=== PATIENT | female | born 1940 | race Hispanic/Latino ===

== ENCOUNTER → 2017-05-18 | Outpatient (CLI) | payer OTHER ==
[~2017-05-18] MED LIST: ASPI-1181 PO; BETA2500 PO; BUME2TAB18 PO; CHOL100040 PO; DOCU-116 PO; DOXY100C2 PO; FERS325 PO; FISH1CAP49 PO; GLIM2TAB3 PO; HYDR100T27 PO; ISOS30TA6 PO; METO50TA18 PO; NITR0.4T50 SL; SIMV20TA6 PO
== END | disposition home or self-care (01) ==
LOC: SHCH 14:56
PROVIDERS: ATTEND Internal Medicine Cardiovascular Disease
DX: R09.89 Other specified symptoms and signs involving the circulatory and respiratory systems (principal)
CPT/HCPCS: 93880

== ENCOUNTER → 2018-06-05 | Outpatient (CLI) | payer OTHER | END | disposition home or self-care (01) | LOC: SHCH 14:20 | PROVIDERS: ATTEND Internal Medicine Cardiovascular Disease | DX: I65.23 Occlusion and stenosis of bilateral carotid arteries (principal) | CPT/HCPCS: 93880 ==

== ENCOUNTER → 2018-12-20 | Outpatient (CLI) | payer OTHER ==
[~2018-12-20] MED LIST changes: -BUME2TAB18 PO; +BUME2TAB5 PO
== END | disposition home or self-care (01) ==
LOC: OIH 13:49
PROVIDERS: ATTEND Internal Medicine
DX: M19.071 Primary osteoarthritis, right ankle and foot (principal); M19.072 Primary osteoarthritis, left ankle and foot; M20.12 Hallux valgus (acquired), left foot; M20.11 Hallux valgus (acquired), right foot; M06.4 Inflammatory polyarthropathy
CPT/HCPCS: 73620

== ENCOUNTER 2019-02-14 12:56 | Inpatient (IN) | payer OTHER ==
[~2019-02-14] VITALS: Ht 154.9 cm; Wt 81.4 kg
[~2019-02-14 12:56] MED LIST changes: -GLIM2TAB3 PO; +GLIM2TAB4 PO; +SIMV-43 PO; -SIMV20TA6 PO
[2019-02-14 15:05] LABS: INR 0.97 (0.85-1.15); PARTIAL THROMBOPLASTIN TIME 30.8 SEC (26.3-35.5); PROTHROMBIN TIME 10.2 SEC (9.6-11.6)
[2019-02-14 15:11] LABS: APPEARANCE,URINE Clear (CLEAR); BILIRUBIN,URINE Negative (NEGATIVE); COLOR,URINE Yellow (YELLOW); GLUCOSE, URINE (UA) Negative (NEGATIVE); KETONES,URINE Negative (NEGATIVE); LEUKOCYTE ESTERASE ,URINE Negative (NEGATIVE); NITRATE,URINE Negative (NEGATIVE); OCCULT BLOOD,URINE Negative (NEGATIVE); PROTEIN,URINE POS 2+ mg/dL (NEGATIVE); UROBILINOGEN,URINE 0.2 mg/dL (0.2-1.0)
[2019-02-14 15:24] LABS: HEMATOCRIT 32.3 % (36-48); MEAN CORPUSCULAR HEMOGLOBIN 28.2 pg (27.0-33.0); MEAN CORPUSCULAR VOLUME 85.6 fL (79-99); PLATELET COUNT (AUTO) 346 K/uL (130-400); RED BLOOD CELL COUNT(AUTO) 3.78 MIL/uL (4.00-5.50); RED CELL DISTRIBUTION WIDTH 16.6 % (11.0-15.5); WHITE BLOOD COUNT (AUTO) 18.3 K/uL (4.8-10.8)
[2019-02-14 15:29] LABS: BACTERIA,URINE Rare /HPF (None Seen); RBC,URINE None Seen /HPF (0-1); SQUAMOUS EPITHELIAL CELL,UR 0-2 /HPF (0-2); WBC,URINE 0-1 /HPF (0-1)
[2019-02-14] MEDS ORDERED: DEXTROSE 50%-WATER 50 ML DISP.SYRIN IV ONE ×3 (15:31→23:40)
[2019-02-14 15:35] LABS: ALANINE AMINOTRANSFERASE 19 U/L (12-78); ALBUMIN 2.5 g/dL (3.5-5.0); ASPARTATE AMINOTRANSFERASE 29 U/L (10-37); BILIRUBIN,TOTAL 0.3 mg/dL (0.2-1.0); CARBON DIOXIDE 29 mmol/L (21-32); CHLORIDE 99 mmol/L (101-111); CREATINE KINASE, TOTAL 84 U/L (21-232); CREATININE 6.6 mg/dL (0.5-1.5); GLOMERULAR FILTR. RATE CALC 6 mL/min (>60); MYOGLOBIN 182 ng/mL (10-92); POTASSIUM 3.5 mmol/L (3.5-5.1); SODIUM SERUM 141 mmol/L (136-145); TOTAL PROTEIN, SERUM 7.4 g/dL (6.0-8.3); TROPONIN I < 0.04 ng/mL (0.00-0.06)
[2019-02-14 15:41] LABS: GLUCOSE,RANDOM 22 mg/dL (70-105); UREA NITROGEN, BLOOD 127 mg/dL (7-18)
[2019-02-14 16:04] LABS: LYMPHOCYTES % (MANUAL) 5 % (22-44); MAN.DIFF COMMENT-IMPRESSION MANUAL DIFFERENTIAL; MONOCYTES % (MANUAL) 3 % (2-9); SEGMENTED NEUTROPHILS % 92 % (40-70)
[2019-02-14 16:05] LABS: PLATELET MORPHOLOGY COMMENT ADEQUATE
[2019-02-14] MEDS ORDERED: PHARMACY COMMUNICATION MISC SCH (20:30)
[2019-02-14] MEDS ORDERED: ONDANSETRON HCL 4 MG/2 ML VIAL IVP PRN (20:30)
[2019-02-14] MEDS ORDERED: ACETAMINOPHEN 325 MG TAB PO PRN (20:30)
[2019-02-14] MEDS ORDERED: LEVOFLOXACIN 500 MG/D5W 100 ML 100 ML ONE (21:22)
[2019-02-14 23:20] VITALS: BP 168/73
[2019-02-15] VITALS (10 sets, daily range): BP systolic 135–169; BP diastolic 46–88
[2019-02-15] MEDS ORDERED: GLUCAGON 1MG KIT 1 MG ML IM PRN (00:30)
[2019-02-15] MEDS: DEXTROSE 50%-WATER 50 ML DISP.SYRIN IV PRN ×6 (02:50→16:15)
--- NOTE | 2019-02-15 04:03 | NUR ---
HYPOGLYCEMIA Patient resting in bed, AA&O X3. No shortness of breath or distress. Patient currently on 2 liters of O2 via NC. No pain or chest pain at this time. Patient came to floor with diagnose of hypoglycemia and chest pain. Blood sugars for patient have been fluctuating; blood sugars have been checked every hour, following hypoglycemia protocol. Last blood sugar is currently 19; administered 25 ml of D50. Patient's vital signs are stable and WNL. Patient is responsive. [employer]EM[employer] gerontology aide. Fabio Dyer NP returned page. Informed him of patient's diagnose and history of CHF and stage 5 CKD. Reported patient's blood sugars are fluctuating and reported current blood sugar of 19. Aware of patient following hypoglycemia protocol and patient has received apple juice and peanut butter with crackers. Obtained order for D10 @40 cc/hr. Will follow order and continue to monitor patient and blood sugars.
[2019-02-15] MEDS: SODIUM CHLORIDE 23.4% 30ML VL 154 MEQ in DEXTROSE 10%-WATER 961.5 ML IV SCH ×2 (04:15→20:17)
[2019-02-15] MEDS ORDERED: DEXTROSE 10%-WATER 1,000 ML IV ONE (04:17)
[2019-02-15] MEDS ORDERED: HYDR100T27 PO (04:55)
[2019-02-15] MEDS ORDERED: FEBU40TA PO (04:55)
[2019-02-15] MEDS ORDERED: VIT1CAPS26 PO (04:55)
[2019-02-15] MEDS ORDERED: ACET1TAB12 PO (04:55)
[2019-02-15] MEDS ORDERED: METO5TAB7 PO (04:55)
[2019-02-15] MEDS ORDERED: GLIM4TAB5 PO (04:55)
[2019-02-15] MEDS ORDERED: NIFE60TA81 PO (04:55)
[2019-02-15] MEDS ORDERED: GARL1000 PO (04:55)
[2019-02-15] MEDS ORDERED: COLC0.6T70 PO (04:55)
[2019-02-15] MEDS ORDERED: ISOS30TA6 PO (04:55)
[2019-02-15] MEDS ORDERED: SIMV-43 PO (04:55)
[2019-02-15] MEDS ORDERED: ALLO100T PO (04:55)
[2019-02-15] MEDS ORDERED: METO50TA18 PO (04:55)
[2019-02-15] MEDS ORDERED: BUME2TAB5 PO (04:55)
[2019-02-15] MEDS ORDERED: ASPI-555 PO (04:55)
[2019-02-15] MEDS ORDERED: AMLO5TAB9 PO (04:55)
[2019-02-15 05:18] LABS: MEAN CORPUSCULAR HEMOGLOBIN 27.6 pg (27.0-33.0); MEAN CORPUSCULAR HGB CONC 31.5 g/dL (32.0-36.0); MEAN CORPUSCULAR VOLUME 87.4 fL (79-99); NUCLEATED RED BLOOD CELLS 0.1 % (0.0-0.19); PLATELET COUNT (AUTO) 328 K/uL (130-400); RED BLOOD CELL COUNT(AUTO) 3.43 MIL/uL (4.00-5.50); RED CELL DISTRIBUTION WIDTH 16.6 % (11.0-15.5); WHITE BLOOD COUNT (AUTO) 15.5 K/uL (4.8-10.8)
[2019-02-15 05:47] LABS: CARBON DIOXIDE 27 mmol/L (21-32); CHLORIDE 102 mmol/L (101-111); CREATINE KINASE, TOTAL 57 U/L (21-232); CREATININE 6.3 mg/dL (0.5-1.5); GLOMERULAR FILTR. RATE CALC 7 mL/min (>60); GLUCOSE,RANDOM 53 mg/dL (70-105); MYOGLOBIN 169 ng/mL (10-92); PHOSPHORUS 6.4 mg/dL (2.5-4.9); POTASSIUM 3.4 mmol/L (3.5-5.1); SODIUM SERUM 144 mmol/L (136-145); TROPONIN I < 0.04 ng/mL (0.00-0.06)
[2019-02-15 06:03] LABS: UREA NITROGEN, BLOOD 121 mg/dL (7-18)
--- NOTE | 2019-02-15 07:50 | NUR ---
DR. ROMAN IN TO SEE PT. WANTS IV CHANGED TO RT. ARM, WANTS LEFT ARM PRESERVED FOR PROBABLE NEAR FUTURE HEMO-DIALYSIS.
--- NOTE | 2019-02-15 08:15 | NUR ---
BLOOD SUGAR CHECKED, IS AT 30. PT. DIAPHORETIC BUT AWAKE AND ALERT, 25ML OF D50 GIVEN. WILL CONTINUE TO MONITOR CLOSELY.
--- NOTE | 2019-02-15 08:36 | NUR ---
Current glucose reading 30. Pt alert, but diaphoretic. Pt ate entire breakfast, and is currently on D10 @ 40ml/hr. Primary nurse administered 25ml of D50. Will continue monitoring glucose Q1h. Paged JEOVANNY Spence for [employer] for further orders.
--- NOTE | 2019-02-15 09:30 | NUR ---
INITIAL MET W PATIENT ALONE, ALERT ORIENTED X3 LIVES WITH SPOUSE SILVIA, WHO IS IN GOOD HEALTH; HOME IS SAFE & ACCESSIBLE, SPOUSE DRIVES PT TO APPT'S. PT USES CANE & ROLLING WALKER ON OCCASION, HAS SHOWER CHAIR/ SAFE BATHROOM. HAS BEEN DIABETIC TYPE TWO SINCE 1979, TAKES GLYBURIDE 2MG AND HAS NEVER HAD ANY PROBLEMS WITH HYPOGLYCEMIA BEFORE. ADVISED HER THAT WE MAY DO A PT EVAL AFTER HER SUGARS HAVE BEEN STABLE FOR A WHILE- TO ENSURE HER SPELL OF ILLNESS HAS NOT AFFECTED HER MOBILITY CM TO FOLLOW. DCP IS HOME AT THIS TIME P Addendum: 02/15/19 at 1439 by EDDIE TOLEDO RN CM Amended: Links added.
--- NOTE | 2019-02-15 11:00 | NUR ---
0.5 MG GLUCAGON GIVEN IM NOW FOR BLD SUGAR 41
[2019-02-15 11:55] LABS: PROTEIN,URINE RANDOM 84.2 mg/dL (0-11.9)
[2019-02-15] MEDS: ZOSYN 3.375GM+NS 50ML 50 ML IV SCH (13:19)
[2019-02-15] MEDS ORDERED: METHYLPREDNISOLONE SOD SUCC 40MG/ML 1ML ONE (14:31)
--- NOTE | 2019-02-15 15:51 | NUR ---
1539 Had pt sign IM Letter. Faxed IM Letter to [phone] and placed in chart under consent tab.
[2019-02-15] MEDS: HYDRALAZINE HCL 20 MG/ML VIAL IV PRN (16:48)
[2019-02-15] MEDS ORDERED: PHARMACY COMMUNICATION MISC SCH ×2 (19:30)
[2019-02-16] VITALS (23 sets, daily range): BP systolic 125–200; BP diastolic 15–114
[2019-02-16] MEDS: ZOSYN 3.375GM+NS 50ML 50 ML IV SCH ×2 (00:11→13:14)
--- NOTE | 2019-02-16 00:42 | NUR ---
Sandra PAK NP NOTIFIED PATIENT'S BLOOD GLUCOSE OVER 200 X 4 HRS AND D10NS OFF X 3 HOURS- NEW ORDERS TO HOLD IV D10 NS AND START INSULIN SQ SS.
[2019-02-16] MEDS ORDERED: INSULIN HUMULIN R 100 UNIT/ML 3ML ONE (03:24)
[2019-02-16 04:01] LABS: HEMATOCRIT 31.7 % (36-48); MEAN CORPUSCULAR HEMOGLOBIN 27.7 pg (27.0-33.0); MEAN CORPUSCULAR HGB CONC 32.2 g/dL (32.0-36.0); MEAN CORPUSCULAR VOLUME 86.2 fL (79-99); NUCLEATED RED BLOOD CELLS 0.1 % (0.0-0.19); PLATELET COUNT (AUTO) 363 K/uL (130-400); RED BLOOD CELL COUNT(AUTO) 3.68 MIL/uL (4.00-5.50); RED CELL DISTRIBUTION WIDTH 16.4 % (11.0-15.5); WHITE BLOOD COUNT (AUTO) 12.7 K/uL (4.8-10.8)
[2019-02-16 04:03] LABS: PHOSPHORUS 6.6 mg/dL (2.5-4.9); POTASSIUM 4.1 mmol/L (3.5-5.1)
[2019-02-16 04:06] LABS: % IRON SATURATION 13.2 % (22-44)
[2019-02-16 04:20] LABS: LYMPHOCYTES % (MANUAL) 6 % (22-44); MONOCYTES % (MANUAL) 2 % (2-9); SEGMENTED NEUTROPHILS % 92 % (40-70)
[2019-02-16 04:21] LABS: MAN.DIFF COMMENT-IMPRESSION MANUAL DIFFERENTIAL
[2019-02-16] MEDS ORDERED: INSULIN HUMULIN R 100 UNIT/ML 3ML SQ SCH ×2 (07:30)
[2019-02-16] MEDS ORDERED: COMPOUND IV MISC 1 EACH IVSOLN MISC PRN (12:45)
[2019-02-16] MEDS: IRON SUCROSE COMPLEX 100 MG in SODIUM CHLORIDE 0.9% 50 ML IV SCH (13:11)
[2019-02-16] MEDS: INSULIN HUMULIN R 100 UNIT/ML 3ML SQ SCH ×3 (13:12→21:00)
[2019-02-16] MEDS: LEVOFLOXACIN 250 MG/D5W 50ML 50 ML IVPB SCH (13:14)
[2019-02-16] MEDS ORDERED: INSULIN REGULAR, HUMAN 3ML 100 UNIT in SODIUM CHLORIDE 0.9% 99 ML IV PRN ×4 (17:45→19:15)
[2019-02-16] MEDS ORDERED: PHARMACY COMMUNICATION MISC SCH ×2 (18:00→20:45)
[2019-02-16] MEDS: AMLODIPINE BESYLATE 5 MG TAB PO SCH (18:07)
[2019-02-16] MEDS: HYDRALAZINE HCL 20 MG/ML VIAL IV PRN (18:07)
[2019-02-16] MEDS ORDERED: HYDR100T27 PO ×2 (20:39)
[2019-02-16] MEDS: METOPROLOL TARTRATE 50 MG TAB PO SCH (21:12)
[2019-02-16] MEDS: HYDRALAZINE HCL 25 MG TABLET PO SCH (21:13)
[2019-02-17] VITALS (18 sets, daily range): BP systolic 135–194; BP diastolic 42–83
[2019-02-17] MEDS: ZOSYN 3.375GM+NS 50ML 50 ML IV SCH ×2 (00:14→12:35)
[2019-02-17] MEDS: HYDRALAZINE HCL 20 MG/ML VIAL IV PRN (05:11)
[2019-02-17] MEDS: INSULIN HUMULIN R 100 UNIT/ML 3ML SQ SCH ×5 (06:35→21:14)
[2019-02-17] MEDS: METOPROLOL TARTRATE 50 MG TAB PO SCH ×2 (08:32→21:06)
[2019-02-17] MEDS: AMLODIPINE BESYLATE 5 MG TAB PO SCH (08:32)
[2019-02-17] MEDS: HYDRALAZINE HCL 25 MG TABLET PO SCH ×2 (08:33→21:06)
[2019-02-17] MEDS ORDERED: HYDRALAZINE HCL 200 MG PO SCH (09:00)
[2019-02-17] MEDS: IRON SUCROSE COMPLEX 100 MG in SODIUM CHLORIDE 0.9% 50 ML IV SCH (10:20)
[2019-02-17 11:36] LABS: CREATININE 5.8 mg/dL (0.5-1.5); POTASSIUM 3.6 mmol/L (3.5-5.1)
[2019-02-17] MEDS: INSULIN GLARGINE 100 UNITS/ML 10 ML VIAL SQ SCH (21:14)
[2019-02-18] MEDS: ZOSYN 3.375GM+NS 50ML 50 ML IV SCH ×2 (00:11→12:55)
[2019-02-18 00:37] VITALS: BP 185/78
[2019-02-18 01:20] VITALS: BP 121/45
--- NOTE | 2019-02-18 01:21 | NUR ---
ACTIVITY Pt assisted to the bathroom,using a roller walker,elizabeth well.
[2019-02-18 04:35] VITALS: BP 162/55
[2019-02-18] MEDS: INSULIN HUMULIN R 100 UNIT/ML 3ML SQ SCH ×4 (06:01→21:55)
[2019-02-18 06:05] LABS: CREATININE 5.7 mg/dL (0.5-1.5); MAGNESIUM 1.9 mg/dL (1.80-2.40); PHOSPHORUS 7.1 mg/dL (2.5-4.9); POTASSIUM 3.7 mmol/L (3.5-5.1)
--- NOTE | 2019-02-18 06:20 | NUR ---
H AND H Lab called that hg 6.2,hct 19,big drop from yesterday.No active bleeding noted.Lab said will redraw.
[2019-02-18 06:27] LABS: HEMATOCRIT 31.5 % (36-48); MEAN CORPUSCULAR HGB CONC 31.8 g/dL (32.0-36.0); MEAN CORPUSCULAR VOLUME 87.8 fL (79-99); PLATELET COUNT (AUTO) 335 K/uL (130-400); RED BLOOD CELL COUNT(AUTO) 3.59 MIL/uL (4.00-5.50); RED CELL DISTRIBUTION WIDTH 16.4 % (11.0-15.5); WHITE BLOOD COUNT (AUTO) 12.9 K/uL (4.8-10.8)
--- NOTE | 2019-02-18 06:30 | NUR ---
MD Dr RAMOS made aware of consult via phone,states he will come see pt today.
[2019-02-18 06:31] LABS: INR 1.02 (0.85-1.15); PARTIAL THROMBOPLASTIN TIME 27.2 SEC (26.3-35.5); PROTHROMBIN TIME 10.7 SEC (9.6-11.6)
[2019-02-18 08:15] LABS: EOSINOPHILS % (MANUAL) 1 % (1-6); LYMPHOCYTES % (MANUAL) 16 % (22-44); MAN.DIFF COMMENT-IMPRESSION MANUAL DIFFERENTIAL; MONOCYTES % (MANUAL) 8 % (2-9); PLATELET MORPHOLOGY COMMENT ADEQUATE; SEGMENTED NEUTROPHILS % 75 % (40-70)
[2019-02-18 08:33] LABS: B-TYPE NATRIURETIC PEPTIDE 714 pg/mL (0-100)
[2019-02-18] MEDS: METOPROLOL TARTRATE 50 MG TAB PO SCH ×2 (08:39→21:58)
[2019-02-18] MEDS: AMLODIPINE BESYLATE 5 MG TAB PO SCH (08:40)
[2019-02-18] MEDS: HYDRALAZINE HCL 25 MG TABLET PO SCH ×2 (08:41→21:58)
--- NOTE | 2019-02-18 10:27 | NUR ---
DISCUSSING RECOMMENDATION OF HD SPOUSE WANTS TO DISCUSS HD INITIATION, STATES HE IS VERY HESISITANT- SAYS HE WANTS TO TALK TO HIS SISTER WHO WORKS HERE, CALL MADE TO SISTER, SHE WILL CALL BACK TO ROOM, PHONE PLACED CLOSE TO PT AND SPOUE AND INSTRUCTED ON USE. RAUL STATES THAT WHEN HE GETS THE OK FROM HIS SISTER, HE WILL TELL THE ZEUS MILLER Addendum: 02/18/19 at 1034 by EDDIE TOLEDO RN CM Amended: Links added.
[2019-02-18] MEDS: IRON SUCROSE COMPLEX 100 MG in SODIUM CHLORIDE 0.9% 50 ML IV SCH (12:55)
[2019-02-18] MEDS: LEVOFLOXACIN 250 MG/D5W 50ML 50 ML IVPB SCH (12:55)
[2019-02-18 16:00] VITALS: BP 172/62
[2019-02-18] MEDS: HYDRALAZINE HCL 20 MG/ML VIAL IV PRN (17:02)
[2019-02-18 19:25] VITALS: BP 196/83
--- NOTE | 2019-02-18 20:00 | NUR ---
CONSENT Consent for permacath and dialysis obtained per Shonda SCHULZ.
[2019-02-18 21:00] VITALS: BP 155/70
[2019-02-18] MEDS: INSULIN GLARGINE 100 UNITS/ML 10 ML VIAL SQ SCH (21:55)
--- NOTE | 2019-02-18 22:00 | NUR ---
BATH Pt refused shower,wants bed bath for now.
[2019-02-19] VITALS: BP 161/67
[2019-02-19] MEDS: ZOSYN 3.375GM+NS 50ML 50 ML IV SCH ×2 (00:09→17:55)
--- NOTE | 2019-02-19 03:48 | NUR ---
UP WITH ASSIST Pt ambulating with assistance uses her rolling walker to go to the bathroom,elizabeth well.
[2019-02-19 04:10] VITALS: BP 185/79
[2019-02-19] MEDS: HYDRALAZINE HCL 20 MG/ML VIAL IV PRN (04:38)
[2019-02-19] MEDS: INSULIN HUMULIN R 100 UNIT/ML 3ML SQ SCH ×4 (05:23→21:43)
[2019-02-19 06:10] LABS: HEMATOCRIT 30.4 % (36-48); MEAN CORPUSCULAR HEMOGLOBIN 27.4 pg (27.0-33.0); MEAN CORPUSCULAR HGB CONC 31.8 g/dL (32.0-36.0); MEAN CORPUSCULAR VOLUME 86.3 fL (79-99); NUCLEATED RED BLOOD CELLS 0.1 % (0.0-0.19); PLATELET COUNT (AUTO) 368 K/uL (130-400); RED BLOOD CELL COUNT(AUTO) 3.52 MIL/uL (4.00-5.50); RED CELL DISTRIBUTION WIDTH 16.8 % (11.0-15.5); WHITE BLOOD COUNT (AUTO) 12.7 K/uL (4.8-10.8)
[2019-02-19 06:20] LABS: INR 1.05 (0.85-1.15); PARTIAL THROMBOPLASTIN TIME 29.1 SEC (26.3-35.5)
[2019-02-19 06:33] LABS: CREATININE 5.3 mg/dL (0.5-1.5); POTASSIUM 4.1 mmol/L (3.5-5.1)
[2019-02-19 07:30] VITALS: BP 132/58
--- NOTE | 2019-02-19 08:00 | NUR ---
PATIENT NEW DIALYSIS AWAITING PERMACATH PLACEMENT AND WILL HAVE FIRST DIALYSIS TODAY AFTER CATH PLACEMENT Addendum: 02/19/19 at 1048 by ANGELA SPANN RN RN Amended: Links added.
[2019-02-19] MEDS: METOPROLOL TARTRATE 50 MG TAB PO SCH ×2 (09:00→20:32)
[2019-02-19] MEDS: HYDRALAZINE HCL 25 MG TABLET PO SCH ×2 (09:00→20:32)
[2019-02-19] MEDS: AMLODIPINE BESYLATE 5 MG TAB PO SCH (09:00)
[2019-02-19 11:00] VITALS: BP 172/58
[2019-02-19] MEDS ORDERED: SODIUM BICARB 50MEQ 50ML VIAL ONE (12:30)
[2019-02-19] MEDS ORDERED: LIDOCAINE HCL 2% 20ML ONE (12:30)
--- NOTE | 2019-02-19 13:45 | NUR ---
REPORT POST PERM-A-CATH RIGHT PERMACATH PLACED UNDER LOCAL ANESTHESIA B/P 176/60 65 SATS 97 ON 2 LITER NC, ORDERS TO USE PERMACATH GIVEN , WAITING FOR PATIENT TO BE RETURNED TO ROOM, DIALYSIS NURSE NOTIFIED OF PATIENT STATUS WILL COME TO DO PATIENT FIRST DIALYSIS
[2019-02-19] MEDS ORDERED: HEPARIN SODIUM 5000UNIT/ML 1ML VIAL ONE (14:42)
--- NOTE | 2019-02-19 17:25 | NUR ---
PATIENT 1ST TIME DIALYSIS ON RIGHT PERMACATH ACCESS, ON AT 1525 OFF AT 1725 3 LITERS REMOVED B/P 148/69 .
[2019-02-19 17:51] LABS: CHOLESTEROL 155 mg/dL (<200); HDL CHOLESTEROL 127 mg/dL (35-85); LDL DIRECT 84 mg/dL (0-99); TRIGLYCERIDES 143 mg/dL (30-200)
[2019-02-19] MEDS: IRON SUCROSE COMPLEX 100 MG in SODIUM CHLORIDE 0.9% 50 ML IV SCH (17:55)
[2019-02-19 20:27] VITALS: BP 170/56
[2019-02-19] MEDS: INSULIN GLARGINE 100 UNITS/ML 10 ML VIAL SQ SCH (20:39)
[2019-02-20] VITALS (7 sets, daily range): BP systolic 114–190; BP diastolic 50–66
[2019-02-20] MEDS: ZOSYN 3.375GM+NS 50ML 50 ML IV SCH ×2 (00:39→13:56)
--- NOTE | 2019-02-20 00:47 | NUR ---
CHAIR Pt sleeping on cardiac chair,denies pain or sob.
[2019-02-20 06:20] LABS: BASOPHILS % (AUTO) 0.5 % (0.0-5.0); EOSINOPHILS % (AUTO) 0.8 % (0.0-8.0); HEMATOCRIT 31.9 % (36-48); LYMPHOCYTES % (AUTO) 12.8 % (21.0-51.0); MEAN CORPUSCULAR HEMOGLOBIN 27.6 pg (27.0-33.0); MEAN CORPUSCULAR VOLUME 86.2 fL (79-99); MONOCYTES % (AUTO) 6.1 % (3.0-13.0); NEUTROPHILS % (AUTO) 79.8 % (40.0-77.0); PLATELET COUNT (AUTO) 274 K/uL (130-400); RED CELL DISTRIBUTION WIDTH 16.3 % (11.0-15.5); WHITE BLOOD COUNT (AUTO) 12.3 K/uL (4.8-10.8)
[2019-02-20] MEDS: INSULIN HUMULIN R 100 UNIT/ML 3ML SQ SCH ×4 (06:26→20:22)
[2019-02-20 06:30] LABS: CREATININE 3.8 mg/dL (0.5-1.5); POTASSIUM 3.6 mmol/L (3.5-5.1)
[2019-02-20] MEDS: METOPROLOL TARTRATE 50 MG TAB PO SCH ×2 (08:24→21:00)
[2019-02-20] MEDS: AMLODIPINE BESYLATE 5 MG TAB PO SCH (08:24)
[2019-02-20] MEDS: HYDRALAZINE HCL 25 MG TABLET PO SCH ×2 (08:26→22:39)
[2019-02-20] MEDS ORDERED: HEPARIN SODIUM 5000UNIT/ML 1ML VIAL ONE (11:38)
[2019-02-20] MEDS: IRON SUCROSE COMPLEX 100 MG in SODIUM CHLORIDE 0.9% 50 ML IV SCH (11:41)
[2019-02-20] MEDS ORDERED: SODIUM CHLORIDE 0.9% 1000ML 1,000 ML IV PRN (12:00)
[2019-02-20] MEDS ORDERED: HEPARIN SODIUM 5000UNIT/ML 1ML VIAL IJ PRN (12:00)
[2019-02-20] MEDS ORDERED: 0.9% SODIUM CHLORIDE 1000 ML IV BAG IV PRN (12:00)
[2019-02-20] MEDS ORDERED: NITROGLYCERIN 0.4 MG SL TAB SL PRN (12:00)
--- NOTE | 2019-02-20 12:00 | NUR ---
SECOND DIALYSIS TREATMENT PATIENT WENT THROUGH SECOND DIALYSIS TREATMENT TODAY, DIALYSED FOR 2.5 HOURS AND 3 L REMOVED.
[2019-02-20] MEDS: LEVOFLOXACIN 250 MG/D5W 50ML 50 ML IVPB SCH (12:39)
--- NOTE | 2019-02-20 14:36 | NUR ---
RD NOTIFICATION DX: HYPOGLYCEMIA, CHEST PAIN. HX: ESRD, CVA, DM, CAD, COPD, HTN. DIET: RENAL DIALYSIS, 75GMCCD. PO INTAKE 75% AND HAS IMPROVING APPETITE. PT ON DIALYSIS FOR THE FIRST TIME. PT RECEIVING TREATMENT #2 DURING TIME OF VISIT. LBM: 02/20; HAVING DIARRHEA. PT WITH HX OF DIARRHEA ACCORDING TO THE PT. PATIENT REFUSED THE NEED FOR RENAL DIALYSIS DIET AND NUTRITION EDUCATION AT THIS TIME. RD RECOMMENDS CONTINUE CURRENT DIET PT REFUSED NEED FOR NUTRITION EDUCATION RD WILL CONTINUE TO MONITOR AND F/U NEEDED Addendum: 02/20/19 at [address] Amended: Links added.
--- NOTE | 2019-02-20 16:00 | NUR ---
WILL SEND PT INFO FOR OUT PATIENT SET UP FOLLOW UP IN AM WITH DR. RAMOS RE WHAT CLNIC TO SEND REFERRAL TO
[2019-02-20] MEDS: FUROSEMIDE 80 MG TABLET PO SCH (17:00)
[2019-02-20] MEDS: INSULIN GLARGINE 100 UNITS/ML 10 ML VIAL SQ SCH (21:00)
[2019-02-21] MEDS: ZOSYN 3.375GM+NS 50ML 50 ML IV SCH ×3 (00:01→22:40)
[2019-02-21 03:00] VITALS: BP 149/58
[2019-02-21 05:24] LABS: BASOPHILS % (AUTO) 0.3 % (0.0-5.0); EOSINOPHILS % (AUTO) 0.5 % (0.0-8.0); HEMATOCRIT 31.5 % (36-48); LYMPHOCYTES % (AUTO) 13.2 % (21.0-51.0); MEAN CORPUSCULAR HEMOGLOBIN 27.6 pg (27.0-33.0); MEAN CORPUSCULAR HGB CONC 31.7 g/dL (32.0-36.0); MEAN CORPUSCULAR VOLUME 86.9 fL (79-99); MONOCYTES % (AUTO) 7.2 % (3.0-13.0); NEUTROPHILS % (AUTO) 78.8 % (40.0-77.0); PLATELET COUNT (AUTO) 219 K/uL (130-400); RED BLOOD CELL COUNT(AUTO) 3.63 MIL/uL (4.00-5.50); RED CELL DISTRIBUTION WIDTH 16.3 % (11.0-15.5); WHITE BLOOD COUNT (AUTO) 13.3 K/uL (4.8-10.8)
[2019-02-21 05:37] LABS: CREATININE 4.1 mg/dL (0.5-1.5); POTASSIUM 3.3 mmol/L (3.5-5.1)
[2019-02-21] MEDS: INSULIN HUMULIN R 100 UNIT/ML 3ML SQ SCH ×4 (05:56→21:00)
[2019-02-21 08:00] VITALS: BP 146/57
[2019-02-21 08:12] LABS: HEPATITIS Bs ANTIGEN SCREEN P Negative (Negative)
[2019-02-21] MEDS: HYDRALAZINE HCL 25 MG TABLET PO SCH ×2 (09:00→22:41)
[2019-02-21] MEDS: FUROSEMIDE 80 MG TABLET PO SCH ×2 (09:00→16:02)
[2019-02-21] MEDS: METOPROLOL TARTRATE 50 MG TAB PO SCH ×2 (09:00→22:40)
--- NOTE | 2019-02-21 09:30 | NUR ---
dialysis in progress. Pt. denies any distress; no changes in condition at this time.
[2019-02-21 12:00] VITALS: BP 114/55
--- NOTE | 2019-02-21 15:00 | NUR ---
AVF OR NO AVF DISCUSSED PLAN OF CARE WITH DR. ALCARAZ. ASKED ABOUT AVF, WE USUALLY GET THAT ORDER FORM THE MD. LISSA THAYER QADVISED [place] CONSULT FOR [facility] IF NECESSARY, JUST EXPEDITE DISCHARGE CALLTO DR. PENNY COVERING FOR DR. RAMOS, NO ANSWER , SAW HIM LATER ON THE FLOOR, STATED NOT NECESSARY TO PLACE AVF ON THIS ADMISSION, CAN BE PLANNED AN OUT PATIENT
[2019-02-21 16:00] VITALS: BP 142/63
[2019-02-21] MEDS: AMLODIPINE BESYLATE 5 MG TAB PO SCH (16:02)
[2019-02-21] MEDS: LISINOPRIL 20 MG TABLET PO SCH (16:03)
--- NOTE | 2019-02-21 16:16 | NUR ---
HAVE NOT DISCUSSED SCHED WITH FAMILY YET FAMILY VERY SURE THEY DID NOT WANT EARLY CHAIR. WANTED MIDDAY. 4TH SHIFT IS MIDDAY, BUT MAYBE CAN CHANGE LATER. CM WILL FOLLOW UP WHEN THEY GET FINAL FINANCIAL CLEARANCE
--- NOTE | 2019-02-21 17:45 | NUR ---
HERVE TENTATIVE CHAIR TIME CINDY RODRIGUEZ, TTS 3RD SHIFT. ' JUST PENDING FINANCIAL CLEARANCE IN AM CANNOT BE ADMITTED TO HD CLINIC ON A MONDAY NEED[place] [facility] [place] THEN [place]
[2019-02-21] MEDS: IRON SUCROSE COMPLEX 100 MG in SODIUM CHLORIDE 0.9% 50 ML IV SCH (17:54)
[2019-02-21 19:15] VITALS: BP 125/56
[2019-02-21] MEDS: INSULIN GLARGINE 100 UNITS/ML 10 ML VIAL SQ SCH (21:00)
[2019-02-22 00:30] VITALS: BP 123/53
[2019-02-22 04:40] VITALS: BP 139/60
[2019-02-22 05:19] LABS: BASOPHILS % (AUTO) 0.8 % (0.0-5.0); EOSINOPHILS % (AUTO) 0.9 % (0.0-8.0); HEMATOCRIT 30.7 % (36-48); LYMPHOCYTES % (AUTO) 12.2 % (21.0-51.0); MEAN CORPUSCULAR HEMOGLOBIN 28.3 pg (27.0-33.0); MEAN CORPUSCULAR HGB CONC 32.2 g/dL (32.0-36.0); MEAN CORPUSCULAR VOLUME 87.8 fL (79-99); MONOCYTES % (AUTO) 6.3 % (3.0-13.0); NEUTROPHILS % (AUTO) 79.8 % (40.0-77.0); PLATELET COUNT (AUTO) 165 K/uL (130-400); RED BLOOD CELL COUNT(AUTO) 3.49 MIL/uL (4.00-5.50); RED CELL DISTRIBUTION WIDTH 16.8 % (11.0-15.5); WHITE BLOOD COUNT (AUTO) 14.3 K/uL (4.8-10.8)
[2019-02-22 05:33] LABS: CREATININE 4.1 mg/dL (0.5-1.5); POTASSIUM 3.6 mmol/L (3.5-5.1)
[2019-02-22] MEDS: INSULIN HUMULIN R 100 UNIT/ML 3ML SQ SCH ×4 (07:30→21:49)
[2019-02-22 08:00] VITALS: BP 129/54
[2019-02-22] MEDS: IRON SUCROSE COMPLEX 100 MG in SODIUM CHLORIDE 0.9% 50 ML IV SCH (09:36)
[2019-02-22] MEDS: AMLODIPINE BESYLATE 5 MG TAB PO SCH (09:37)
[2019-02-22] MEDS: FUROSEMIDE 80 MG TABLET PO SCH ×2 (09:37→18:04)
[2019-02-22] MEDS: HYDRALAZINE HCL 25 MG TABLET PO SCH ×2 (09:37→21:48)
[2019-02-22] MEDS: LISINOPRIL 20 MG TABLET PO SCH (09:38)
[2019-02-22] MEDS: METOPROLOL TARTRATE 50 MG TAB PO SCH ×2 (09:39→21:49)
--- NOTE | 2019-02-22 11:18 | NUR ---
Nutrition follow-up: Pt. continues on HD treatments. Pt. on 75gm CCD Renal Dialysis diet with good p.o. intake, as per pt. Labs reviewed(Alb 2.5, BUN 35, Creat 4.1, GFR 11, PHOS 7.1). LBM: 02/21/19. SR-18, elastic. Pt. educated on Renal Dialysis diet and provided with education material. Pt. verbalized understanding. Recommendations: 1) Continue current diet. 2) Rec. Phoslo BID with meals due to high PHOS level. 3) Renal Dialysis diet education given to patient. 4) Rec. 30ml ProMod BID with B'fast and dinner meals. 5) Continue to monitor pt's nutritional status. 6) Consult RD as nutrition concerns arise. Addendum: 02/22/19 at [address] Amended: Links added.
--- NOTE | 2019-02-22 12:00 | NUR ---
cm note call made to [facility] admissions and spoke to Jai and states no financial approval yet will followup and let cm know. also needs to verify chair times.
[2019-02-22 12:04] VITALS: BP 130/53
[2019-02-22] MEDS: LEVOFLOXACIN 250 MG/D5W 50ML 50 ML IVPB SCH (12:11)
[2019-02-22] MEDS: ZOSYN 3.375GM+NS 50ML 50 ML IV SCH (12:12)
[2019-02-22 16:00] VITALS: BP 121/52
--- NOTE | 2019-02-22 17:15 | NUR ---
cm note call made to [facility] admissions and spoke to Jai and states no financial looks good and he has tried to reach contact at [facility] but not been able to reach yet. he provided number to [facility] [address] [phone] and said can call to see if they can provide me the chair info, call made and spoke to Lizeth, states her policy change clerks supervisor is not here but, did inform me that dr Edwards does not go to this facility,
--- NOTE | 2019-02-22 18:00 | NUR ---
cmnote call made to dr malin [phone]- and states he is covering for Dr arrieta, informed that was told that dr arrieta does not go to [facility]. he confirmed this, but states to try other [facility] in [place], or [facility].
[2019-02-22 20:00] VITALS: BP 142/50
[2019-02-22] MEDS ORDERED: METO50 PO (20:24)
[2019-02-22] MEDS ORDERED: LISI-613 PO (20:24)
[2019-02-22] MEDS ORDERED: INSLAN SQ (20:24)
[2019-02-22] MEDS ORDERED: FURO80TA3 PO (20:24)
[2019-02-22] MEDS ORDERED: LEVO500T2 PO (20:24)
[2019-02-22] MEDS: INSULIN GLARGINE 100 UNITS/ML 10 ML VIAL SQ SCH (21:00)
[2019-02-23] VITALS: BP 134/53
[2019-02-23] MEDS: ZOSYN 3.375GM+NS 50ML 50 ML IV SCH ×2 (00:02→12:31)
[2019-02-23 04:00] VITALS: BP 134/58
[2019-02-23 04:36] LABS: BASOPHILS % (AUTO) 0.6 % (0.0-5.0); HEMATOCRIT 29.6 % (36-48); LYMPHOCYTES % (AUTO) 11.6 % (21.0-51.0); MEAN CORPUSCULAR HEMOGLOBIN 27.6 pg (27.0-33.0); MEAN CORPUSCULAR HGB CONC 31.6 g/dL (32.0-36.0); MEAN CORPUSCULAR VOLUME 87.5 fL (79-99); MONOCYTES % (AUTO) 7.6 % (3.0-13.0); NEUTROPHILS % (AUTO) 79.2 % (40.0-77.0); PLATELET COUNT (AUTO) 183 K/uL (130-400); RED BLOOD CELL COUNT(AUTO) 3.38 MIL/uL (4.00-5.50); RED CELL DISTRIBUTION WIDTH 16.4 % (11.0-15.5); WHITE BLOOD COUNT (AUTO) 15.5 K/uL (4.8-10.8)
[2019-02-23 04:49] LABS: CREATININE 5.8 mg/dL (0.5-1.5); POTASSIUM 3.3 mmol/L (3.5-5.1)
[2019-02-23] MEDS: INSULIN HUMULIN R 100 UNIT/ML 3ML SQ SCH ×4 (05:53→20:24)
[2019-02-23 08:00] VITALS: BP 116/38
[2019-02-23] MEDS: METOPROLOL TARTRATE 50 MG TAB PO SCH ×2 (09:00→20:18)
[2019-02-23] MEDS: LISINOPRIL 20 MG TABLET PO SCH (09:00)
[2019-02-23] MEDS: AMLODIPINE BESYLATE 5 MG TAB PO SCH (09:00)
[2019-02-23] MEDS: HYDRALAZINE HCL 25 MG TABLET PO SCH ×2 (09:00→20:18)
[2019-02-23] MEDS: FUROSEMIDE 80 MG TABLET PO SCH ×2 (10:31→16:06)
[2019-02-23 11:42] VITALS: BP 128/48
--- NOTE | 2019-02-23 12:00 | NUR ---
CM NOTE CALL made to [facility] [place], [phone]. and left message. requesting callback for final approval of chair time, and also to verify Dr arrieta goes to [facility], and if not to request change to [facility] [place] [facility]. updated pt on above, verbalizes understanding.
[2019-02-23] MEDS: IRON SUCROSE COMPLEX 100 MG in SODIUM CHLORIDE 0.9% 50 ML IV SCH (12:31)
[2019-02-23 16:00] VITALS: BP 111/43
--- NOTE | 2019-02-23 16:00 | NUR ---
CM NOTE CALL made to [facility], [phone]. and left message. requesting callback for final approval of chair time, and also to verify Dr arrieta goes to [facility], and if not to request change to [facility] [place]. pending callback
[2019-02-23] MEDS: INSULIN GLARGINE 100 UNITS/ML 10 ML VIAL SQ SCH (20:23)
[2019-02-23 20:47] VITALS: BP 116/48
[2019-02-24 00:01] VITALS: BP 106/39
[2019-02-24] MEDS: ZOSYN 3.375GM+NS 50ML 50 ML IV SCH (00:38)
[2019-02-24 03:59] VITALS: BP 124/41
[2019-02-24] MEDS: INSULIN HUMULIN R 100 UNIT/ML 3ML SQ SCH ×4 (05:20→20:01)
[2019-02-24 05:39] LABS: BASOPHILS % (AUTO) 0.7 % (0.0-5.0); EOSINOPHILS % (AUTO) 0.9 % (0.0-8.0); HEMATOCRIT 27.8 % (36-48); LYMPHOCYTES % (AUTO) 14.6 % (21.0-51.0); MEAN CORPUSCULAR HEMOGLOBIN 27.3 pg (27.0-33.0); MEAN CORPUSCULAR HGB CONC 31.2 g/dL (32.0-36.0); MEAN CORPUSCULAR VOLUME 87.6 fL (79-99); MONOCYTES % (AUTO) 8.2 % (3.0-13.0); NEUTROPHILS % (AUTO) 75.6 % (40.0-77.0); PLATELET COUNT (AUTO) 176 K/uL (130-400); RED BLOOD CELL COUNT(AUTO) 3.17 MIL/uL (4.00-5.50); RED CELL DISTRIBUTION WIDTH 16.6 % (11.0-15.5); WHITE BLOOD COUNT (AUTO) 13.6 K/uL (4.8-10.8)
[2019-02-24 05:45] LABS: CREATININE 4.7 mg/dL (0.5-1.5); POTASSIUM 3.6 mmol/L (3.5-5.1)
[2019-02-24 08:00] VITALS: BP 126/47
[2019-02-24] MEDS: HYDRALAZINE HCL 25 MG TABLET PO SCH ×2 (09:00→20:02)
[2019-02-24] MEDS: LISINOPRIL 20 MG TABLET PO SCH (09:00)
[2019-02-24] MEDS: AMLODIPINE BESYLATE 5 MG TAB PO SCH (09:00)
[2019-02-24] MEDS: METOPROLOL TARTRATE 50 MG TAB PO SCH ×2 (09:00→21:00)
[2019-02-24] MEDS: FUROSEMIDE 80 MG TABLET PO SCH ×2 (09:00→16:38)
[2019-02-24] MEDS: COLCHICINE 0.6 MG TABLET PO SCH (10:17)
[2019-02-24] MEDS: IRON SUCROSE COMPLEX 100 MG in SODIUM CHLORIDE 0.9% 50 ML IV SCH (10:18)
[2019-02-24 11:00] VITALS: BP 129/45
[2019-02-24 16:00] VITALS: BP 133/54
[2019-02-24] MEDS: INSULIN GLARGINE 100 UNITS/ML 10 ML VIAL SQ SCH (20:01)
[2019-02-24 21:49] VITALS: BP 119/49
[2019-02-25 00:38] VITALS: BP 127/48
[2019-02-25 04:46] VITALS: BP 149/51
[2019-02-25] MEDS: INSULIN HUMULIN R 100 UNIT/ML 3ML SQ SCH ×2 (07:19→11:30)
[2019-02-25 08:00] VITALS: BP 129/59
--- NOTE | 2019-02-25 08:00 | NUR ---
PT AAAO X 3 , REVIEW PLAN OF CARE. STATED THAT SHE WAS WAITING FOR NEXT STEP .REGARDING THE DIALYSIS , CHAIR, AT PRESENT DENIES ANY PAIN ,AND FALL RISK REVIEW AND CALL LIGHT IN REACH.
[2019-02-25] MEDS: FUROSEMIDE 80 MG TABLET PO SCH (09:37)
[2019-02-25] MEDS: LISINOPRIL 20 MG TABLET PO SCH (09:38)
[2019-02-25] MEDS: METOPROLOL TARTRATE 50 MG TAB PO SCH (09:38)
[2019-02-25] MEDS: COLCHICINE 0.6 MG TABLET PO SCH (09:38)
[2019-02-25] MEDS: IRON SUCROSE COMPLEX 100 MG in SODIUM CHLORIDE 0.9% 50 ML IV SCH (09:38)
[2019-02-25] MEDS: AMLODIPINE BESYLATE 5 MG TAB PO SCH (09:38)
[2019-02-25] MEDS: HYDRALAZINE HCL 25 MG TABLET PO SCH (09:41)
[2019-02-25 12:00] VITALS: BP 105/49
--- NOTE | 2019-02-25 19:30 | NUR ---
DISCHARGE HOME , WITH . REVIEW PLAN OF CARE. . SL TO HER RT WRIST WAS DC ,NOTED NO REDNESS . PT WITH A PERMACATHETER IN PLACE TO HER RT CHEST, REVIEW PLAN OF CARE. AND EDUCATION GIVEN . PT WILL GO TO THE DIALYSIS TREATMENT CENTER IN AM. REVIEW EDUCATION OF CARE DENIES ANY DISCOMFORT . REVIEW SIDE OF EFFECTS AND MEDICATION WHICH ONES TO TAKE AND WHICH ONES TO HOLD.
== END 2019-02-25 18:55 | disposition home or self-care (01) | DRG 638 ==
LOC: EDH 12:56 → EDHIP 19:25 → OBSVTOIN 19:25 → 3BH 22:41 → 2BH 02-15 14:53 → 3CH 02-17 17:33
PROVIDERS: ADMIT Internal Medicine; ATTEND Internal Medicine
PROC: 0JH63XZ Insertion of Tunneled Vascular Access Device into Chest Subcutaneous Tissue and Fascia, Percutaneous Approach (ICD-10-PCS; principal; 2019-02-19)
PROC: 02HV33Z Insertion of Infusion Device into Superior Vena Cava, Percutaneous Approach (ICD-10-PCS; 2019-02-19)
PROC: 5A1D70Z Performance of Urinary Filtration, Intermittent, Less than 6 Hours Per Day (ICD-10-PCS; 2019-02-19)
PROC: 5A1D70Z Performance of Urinary Filtration, Intermittent, Less than 6 Hours Per Day (ICD-10-PCS; 2019-02-20)
PROC: 5A1D70Z Performance of Urinary Filtration, Intermittent, Less than 6 Hours Per Day (ICD-10-PCS; 2019-02-21)
PROC: 5A1D70Z Performance of Urinary Filtration, Intermittent, Less than 6 Hours Per Day (ICD-10-PCS; 2019-02-23)
DX: E11.649 Type 2 diabetes mellitus with hypoglycemia without coma (principal); I13.2 Hypertensive heart and chronic kidney disease with heart failure and with stage 5 chronic kidney disease, or end stage renal disease; I50.32 Chronic diastolic (congestive) heart failure; N18.6 End stage renal disease; E11.22 Type 2 diabetes mellitus with diabetic chronic kidney disease; I25.10 Atherosclerotic heart disease of native coronary artery without angina pectoris; D72.829 Elevated white blood cell count, unspecified; E66.01 Morbid (severe) obesity due to excess calories; Z68.33 Body mass index [BMI] 33.0-33.9, adult; D64.9 Anemia, unspecified; E11.21 Type 2 diabetes mellitus with diabetic nephropathy; E78.00 Pure hypercholesterolemia, unspecified; J44.9 Chronic obstructive pulmonary disease, unspecified; M10.9 Gout, unspecified; Z79.4 Long term (current) use of insulin; Z79.82 Long term (current) use of aspirin; Z79.899 Other long term (current) drug therapy; Z86.73 Personal history of transient ischemic attack (TIA), and cerebral infarction without residual deficits; Z90.710 Acquired absence of both cervix and uterus; Z91.15 Patient's noncompliance with renal dialysis; Z99.2 Dependence on renal dialysis
CPT/HCPCS: 36415; 36558; 71045; 71046; 74018; 76770; 77001; 80048; 80053; 80061; 81001; 82550; 82570; 82947; 82948; 83540; 83550; 83605; 83735; 83874; 83880; 84100; 84145; 84156; 84443; 84484; 85025; 85027; 85610; 85730; 86701; 86704; 86706; 87040; 87340; 87390; 87520; 90935; 93005; 93306; 93970; 99291; C1750; G0378; J0360; J1610; J1644; J1756; J1815; J1956; J2543; J2920; J3490; J7070; J7131

== ENCOUNTER → 2019-06-21 | Outpatient (CLI) | payer OTHER ==
[~2019-06-21] MED LIST changes: -ASPI-1181 PO; -BETA2500 PO; -BUME2TAB5 PO; -CHOL100040 PO; +COLC0.6T67 PO; -DOCU-116 PO; -DOXY100C2 PO; +FAMO20TA8 PO; +FEBU40TA3 PO; -FERS325 PO; -FISH1CAP49 PO; +FURO80TA3 PO; -GLIM2TAB4 PO; -HYDR100T27 PO; +LISI-617 PO; -METO50TA18 PO; +METO5TAB7 PO; +PANT40TA25 PO; -SIMV-43 PO; +SIMV5TAB58 PO
== END | disposition home or self-care (01) ==
LOC: RAH 10:10
PROVIDERS: ATTEND Internal Medicine Cardiovascular Disease
DX: Z13.6 Encounter for screening for cardiovascular disorders (principal)
CPT/HCPCS: 75571

== ENCOUNTER 2019-10-07 08:32 | Day surgery (SDC) | payer OTHER ==
[2019-10-02 10:09] LABS: BASOPHILS % (AUTO) 0.8 % (0.0-5.0); EOSINOPHILS % (AUTO) 2.1 % (0.0-8.0); HEMATOCRIT 40.9 % (36-48); LYMPHOCYTES % (AUTO) 35.4 % (21.0-51.0); MEAN CORPUSCULAR HEMOGLOBIN 32.1 pg (27.0-33.0); MEAN CORPUSCULAR HGB CONC 30.3 g/dL (32.0-36.0); MONOCYTES % (AUTO) 8.6 % (3.0-13.0); NEUTROPHILS % (AUTO) 52.7 % (40.0-77.0); PLATELET COUNT (AUTO) 204 K/uL (130-400); RED BLOOD CELL COUNT(AUTO) 3.86 MIL/uL (4.00-5.50); RED CELL DISTRIBUTION WIDTH 17.3 % (11.0-15.5); WHITE BLOOD COUNT (AUTO) 7.5 K/uL (4.8-10.8)
[2019-10-02 10:30] LABS: INR 0.99 (0.85-1.15); PARTIAL THROMBOPLASTIN TIME 27.4 SEC (26.3-35.5); PROTHROMBIN TIME 10.7 SEC (9.6-11.6)
[2019-10-02 10:31] LABS: ALBUMIN 3.7 g/dL (3.5-5.0); BILIRUBIN,TOTAL 0.5 mg/dL (0.2-1.0); CREATININE 5.9 mg/dL (0.5-1.5); POTASSIUM 5.5 mmol/L (3.5-5.1); TOTAL PROTEIN, SERUM 7.6 g/dL (6.0-8.3)
[2019-10-02 10:57] VITALS: BP 18/95
--- NOTE | 2019-10-04 11:23 | NUR ---
RE: abnormal EKG REPORTED ABNORMAL EKG TO DR APONTE, NO NEW ORDERS. OK TO PROCEED WITH SURGERY.
[~2019-10-07] VITALS: Ht 154.9 cm; Wt 78.3 kg
[~2019-10-07 08:32] MED LIST changes: +ASPI-556 PO; +CEFAZOLIN SODIUM 1 GM VIAL IVP SCH; -COLC0.6T67 PO; -FAMO20TA8 PO; -FEBU40TA3 PO; +GARL1000 PO; +HYDR100T27 PO; -LISI-617 PO; +METO50TA18 PO; -NITR0.4T50 SL; -PANT40TA25 PO; +PIOG30TA70 PO; +SUPER VIT B COMPLEX PO; +TUMERIC PO
[2019-10-07 09:06] VITALS: BP 115/66
[2019-10-07] MEDS ORDERED: SODIUM CHLORIDE 0.9% 1000ML 1,000 ML IV ONE (09:33)
--- NOTE | 2019-10-07 11:50 | NUR ---
abnormal lab: samantha cedeño crna notified of potassium result 5.7 in am, no orders given at present time.
[2019-10-07] MEDS ORDERED: CALCIUM GLUCONATE 1 GM in SODIUM CHLORIDE 0.9% 100 ML IV SCH (12:30)
[2019-10-07] MEDS ORDERED: SODIUM POLYSTYRENE SULFONATE 15 GM/60 ML ML PO NR (12:30)
== END 2019-10-07 13:50 | disposition home or self-care (01) ==
LOC: DAH 08:32
PROVIDERS: ATTEND Student in an Organized Health Care Education/Training Program
DX: N18.6 End stage renal disease (principal); Z11.59 Encounter for screening for other viral diseases; Z79.01 Long term (current) use of anticoagulants; Z53.8 Procedure and treatment not carried out for other reasons
CPT/HCPCS: 36415 ×2; 80053; 82948; 84132; 85025; 85610; 85730; 86850 ×2; 86900 ×2; 86901 ×2; 93005; A4215; A4221; A4222; A4223; A4600; A4663; A5120; A6260; J0610; J7030; U0003; J0690

== ENCOUNTER 2019-10-30 06:40 | Day surgery (SDC) | payer OTHER ==
[2019-10-25 16:01] LABS: BASOPHILS % (AUTO) 0.9 % (0.0-5.0); EOSINOPHILS % (AUTO) 1.7 % (0.0-8.0); LYMPHOCYTES % (AUTO) 29.9 % (21.0-51.0); MEAN CORPUSCULAR HGB CONC 32.2 g/dL (32.0-36.0); MEAN CORPUSCULAR VOLUME 102.5 fL (79-99); MONOCYTES % (AUTO) 8.2 % (3.0-13.0); PLATELET COUNT (AUTO) 194 K/uL (130-400); RED BLOOD CELL COUNT(AUTO) 3.61 MIL/uL (4.00-5.50); RED CELL DISTRIBUTION WIDTH 14.2 % (11.0-15.5); WHITE BLOOD COUNT (AUTO) 8.8 K/uL (4.8-10.8)
[2019-10-25 16:11] LABS: INR 0.94 (0.85-1.15); PARTIAL THROMBOPLASTIN TIME 27.9 SEC (26.3-35.5); PROTHROMBIN TIME 10.2 SEC (9.6-11.6)
[2019-10-25 16:25] LABS: ALBUMIN 3.9 g/dL (3.5-5.0); BILIRUBIN,TOTAL 0.4 mg/dL (0.2-1.0); CREATININE 5.5 mg/dL (0.5-1.5); POTASSIUM 4.5 mmol/L (3.5-5.1); TOTAL PROTEIN, SERUM 7.9 g/dL (6.0-8.3)
[~2019-10-30] VITALS: Ht 154.9 cm; Wt 78.1 kg
[2019-10-30] VITALS (20 sets, daily range): BP systolic 92–151; BP diastolic 36–54
[~2019-10-30 06:40] MED LIST changes: -CEFAZOLIN SODIUM 1 GM VIAL IVP SCH
[2019-10-30] MEDS ORDERED: BUPIVACAINE/PF 0.25% 30ML VIAL IJ ONE (07:58)
[2019-10-30] MEDS ORDERED: LIDOCAINE HCL 1% 20 ML VIAL ONE (07:58)
[2019-10-30] MEDS ORDERED: SODIUM CHLORIDE 0.9% 500ML 0 ML IV ONE (08:00)
[2019-10-30] MEDS ORDERED: CEFAZOLIN SODIUM 1 GM VIAL IVP ONE (08:00)
[2019-10-30] MEDS ORDERED: SODIUM CHLORIDE 0.9% 1000ML 1,000 ML IV ONE (08:01)
[2019-10-30] MEDS ORDERED: LIDOCAINE PF 2% 5ML ABBOJECT ONE (08:22)
[2019-10-30] MEDS ORDERED: SUCCINYLCHOLINE CHLORIDE 20 MG/ML 10 ML VIAL ONE ×2 (08:22→08:37)
[2019-10-30] MEDS ORDERED: MIDAZOLAM HCL 1 MG/ML 2ML VIAL ONE (08:22)
[2019-10-30] MEDS ORDERED: DEXAMETHASONE SOD PHOSPHATE 10MG/ML 1ML VIAL ONE (08:22)
[2019-10-30] MEDS ORDERED: ONDANSETRON HCL 4 MG/2 ML VIAL ONE (08:23)
[2019-10-30] MEDS ORDERED: ROCURONIUM 10MG/1ML SYR 10 MG/ML ML ONE (08:23)
[2019-10-30] MEDS ORDERED: GLYCOPYRROLATE 1 MG/5 ML SYRINGE ONE (08:23)
[2019-10-30] MEDS ORDERED: PROPOFOL 10 MG/ML 20ML VIAL IV ONE (08:23)
[2019-10-30] MEDS ORDERED: FENTANYL CITRATE PF 50 MCG/1 ML 2ML VIAL ONE (08:23)
[2019-10-30] MEDS ORDERED: NEOSTIGMINE 5MG/5ML SYR IV ONE (08:23)
[2019-10-30] MEDS ORDERED: ALBUMIN (HUMAN) 25% 100 ML IV ONE (08:37)
[2019-10-30] MEDS ORDERED: EPHEDRINE SULFATE 50 MG/ML AMPULE ONE (08:42)
[2019-10-30] MEDS ORDERED: HEPARIN SODIUM 1000UNIT/ML 10ML VIAL ONE (09:27)
[2019-10-30] MEDS ORDERED: PROTAMINE SULFATE 10 MG/ML 5 ML VIAL ONE (11:02)
[2019-10-30] MEDS ORDERED: LABETALOL HCL 5 MG/ML 20ML VIAL IV ONE (11:02)
[2019-10-30] MEDS ORDERED: MEPERIDINE-PF 25 MG/ML SYG ONE (11:15)
--- NOTE | 2019-10-30 11:30 | NUR ---
SCLERA EDEMA AND REDNESS TO RIGHT EYE NOTED Addendum: 10/30/19 at 1222 by ZACH BHATT RN RN Amended: Links added.
--- NOTE | 2019-10-30 12:45 | NUR ---
PATIENT ARRIVED TO DAY PATIENT VIA STRETCHER BY ZACH BAILEY RN AND YOSHI ESCOBAR RN. PATIENT AAOX3, VITAL SIGNS STABLE, DENIES ANY PAIN AT THIS TIME. DRESSING TO LEFT ARM IS DRY/INTACT, NO DRAINAGE NOTED. POSITIVE BRUIT, NO THRILL NOTED AT THIS TIME.
--- NOTE | 2019-10-30 13:50 | NUR ---
PATIENT DISCHARGED FROM FACILITY VIA WHEELCHAIR BY ROBERT BRANDT. PATIENT ASSISTED INTO PRIVATE VEHICLE DRIVEN BY FAMILY.
== END 2019-10-30 13:55 | disposition home or self-care (01) ==
LOC: DAH 06:40
PROVIDERS: ATTEND Student in an Organized Health Care Education/Training Program
DX: Z45.2 Encounter for adjustment and management of vascular access device (principal); K21.9 Gastro-esophageal reflux disease without esophagitis; I12.0 Hypertensive chronic kidney disease with stage 5 chronic kidney disease or end stage renal disease; E11.22 Type 2 diabetes mellitus with diabetic chronic kidney disease; N18.6 End stage renal disease; Z86.73 Personal history of transient ischemic attack (TIA), and cerebral infarction without residual deficits; Z79.899 Other long term (current) drug therapy; Z99.2 Dependence on renal dialysis; Z11.59 Encounter for screening for other viral diseases
CPT/HCPCS: 36415 ×2; 36821; 71045; 80053; 82948 ×2; 84132; 85025; 85610; 85730; 86850 ×2; 86900 ×2; 86901 ×2; 93005; A4215 ×2; A4221; A4222; A4223; A4649 ×3; A4663; A4930; A6207; A6260; C1713 ×2; G0168; J0330 ×2; J0690; J1100; J1644 ×2; J2001; J2175; J2250; J2405; J2704; J2710; J2720; J3010; J3490 ×3; J7030 ×2; P9047; U0003; J7040

== ENCOUNTER 2021-12-30 19:31 | Emergency (ER) | payer OTHER ==
[~2021-12-30] VITALS: Ht 152.4 cm; Wt 74.8 kg
[~2021-12-30 19:31] MED LIST changes: +AEC81 PO; -ASPI-556 PO; -FURO80TA3 PO; -GARL1000 PO; -HYDR100T27 PO; -ISOS30TA6 PO; -METO50TA18 PO; -METO5TAB7 PO; -PIOG30TA70 PO; -SIMV5TAB58 PO; -SUPER VIT B COMPLEX PO; -TUMERIC PO
[2021-12-30 21:06] VITALS: BP 151/67
== END 2021-12-30 21:15 | disposition home or self-care (01) ==
LOC: EDH 19:31
DX: T82.511A Breakdown (mechanical) of surgically created arteriovenous shunt, initial encounter (principal); I12.0 Hypertensive chronic kidney disease with stage 5 chronic kidney disease or end stage renal disease; E11.22 Type 2 diabetes mellitus with diabetic chronic kidney disease; N18.6 End stage renal disease; E78.00 Pure hypercholesterolemia, unspecified; I25.10 Atherosclerotic heart disease of native coronary artery without angina pectoris; Z79.82 Long term (current) use of aspirin; Z99.2 Dependence on renal dialysis; Y83.8 Other surgical procedures as the cause of abnormal reaction of the patient, or of later complication, without mention of misadventure at the time of the procedure; Y92.89 Other specified places as the place of occurrence of the external cause
CPT/HCPCS: 99282

== ENCOUNTER → 2022-07-18 | Outpatient (CLI) | payer OTHER ==
[~2022-07-18] MED LIST changes: +AMOX-426 PO; +ASCO1CAP5 PO; +BIOT10004 PO; +DULO30CA52 PO; +FOLI1TAB85 PO; +GARL1000 PO; +HYDR-3420 PO; +ISOS30TA92 PO; +LIDOCAINE HCL 1% 20 ML VIAL ONE; +METO50TA18 PO; +PREG25CA18 PO; +SIMV5TAB58 PO; +beet root; +tumeric curcumin; +vit D
[2022-07-18 08:51] LABS: INR 0.94 (0.85-1.15); PROTHROMBIN TIME 10.3 SEC (9.6-11.6)
[2022-07-18 08:52] LABS: PARTIAL THROMBOPLASTIN TIME 26.6 SEC (26.3-35.5)
== END | disposition home or self-care (01) ==
LOC: RAH 08:06
PROVIDERS: ATTEND Family Medicine
DX: C50.412 Malignant neoplasm of upper-outer quadrant of left female breast (principal); E11.22 Type 2 diabetes mellitus with diabetic chronic kidney disease; I13.2 Hypertensive heart and chronic kidney disease with heart failure and with stage 5 chronic kidney disease, or end stage renal disease; N18.6 End stage renal disease; I50.42 Chronic combined systolic (congestive) and diastolic (congestive) heart failure; E11.51 Type 2 diabetes mellitus with diabetic peripheral angiopathy without gangrene; E11.42 Type 2 diabetes mellitus with diabetic polyneuropathy; E11.65 Type 2 diabetes mellitus with hyperglycemia; E11.621 Type 2 diabetes mellitus with foot ulcer; I25.118 Atherosclerotic heart disease of native coronary artery with other forms of angina pectoris; E11.52 Type 2 diabetes mellitus with diabetic peripheral angiopathy with gangrene; J20.9 Acute bronchitis, unspecified; I70.203 Unspecified atherosclerosis of native arteries of extremities, bilateral legs; J44.9 Chronic obstructive pulmonary disease, unspecified; E78.2 Mixed hyperlipidemia; G47.33 Obstructive sleep apnea (adult) (pediatric); E66.9 Obesity, unspecified; F32.9 Major depressive disorder, single episode, unspecified; K21.9 Gastro-esophageal reflux disease without esophagitis; Z90.710 Acquired absence of both cervix and uterus; Z99.2 Dependence on renal dialysis; Z86.73 Personal history of transient ischemic attack (TIA), and cerebral infarction without residual deficits; Z79.01 Long term (current) use of anticoagulants; Z98.890 Other specified postprocedural states; Z79.899 Other long term (current) drug therapy; Z82.49 Family history of ischemic heart disease and other diseases of the circulatory system; Z82.3 Family history of stroke; Z83.3 Family history of diabetes mellitus; Z68.32 Body mass index [BMI] 32.0-32.9, adult
CPT/HCPCS: 19083; 85610; 85730; 36415; 88305; A4215 ×3

== ENCOUNTER 2022-08-02 16:06 | Inpatient (IN) | payer OTHER ==
[~2022-08-02] VITALS: Ht 154.9 cm; Wt 75.3 kg
[~2022-08-02 16:06] MED LIST changes: -ASCO1CAP5 PO; -LIDOCAINE HCL 1% 20 ML VIAL ONE
[2022-08-02 16:55] LABS: BASOPHILS % (AUTO) 0.7 % (0.0-5.0); EOSINOPHILS % (AUTO) 0.5 % (0.0-8.0); HEMATOCRIT 41.1 % (36-48); LYMPHOCYTES % (AUTO) 8.2 % (21.0-51.0); MEAN CORPUSCULAR HEMOGLOBIN 32.3 pg (27.0-33.0); MEAN CORPUSCULAR HGB CONC 31.4 g/dL (32.0-36.0); MEAN CORPUSCULAR VOLUME 102.8 fL (79-99); MONOCYTES % (AUTO) 4.4 % (3.0-13.0); NEUTROPHILS % (AUTO) 84.8 % (40.0-77.0); NUCLEATED RED BLOOD CELLS 0.3 % (0.0-0.19); PLATELET COUNT (AUTO) 202 K/uL (130-400); RED CELL DISTRIBUTION WIDTH 15.1 % (11.0-15.5)
[2022-08-02 17:19] LABS: CREATININE 5.2 mg/dL (0.5-1.5); POTASSIUM 3.7 mmol/L (3.5-5.1)
[2022-08-02 17:24] LABS: TOTAL PROTEIN, SERUM 7.4 g/dL (6.0-8.3)
[2022-08-02 17:46] LABS: INR 0.94 (0.85-1.15); PROTHROMBIN TIME 10.3 SEC (9.6-11.6)
[2022-08-02] MEDS ORDERED: RENAL DOSE IV PRN (19:00)
[2022-08-02] MEDS ORDERED: 0.9%NACL 50ML IV SCH (19:00)
[2022-08-02 19:49] LABS: HEMOGLOBIN A1C 5.9 % (4.0-6.0)
[2022-08-02 19:58] LABS: MAGNESIUM 1.8 mg/dL (1.80-2.40); THYROID STIMULATING HORMONE 1.14 uIU/mL (0.36-3.74)
[2022-08-02] MEDS ORDERED: VANCOMYCIN PROTOCOL PER PHARMACY IV SCH (20:30)
[2022-08-02] MEDS: VANCOMYCIN 1G/250ML KIT 250 ML IV SCH (20:48)
[2022-08-02 21:00] VITALS: BP 121/48
[2022-08-02] MEDS ORDERED: ASCO1CAP5 PO (22:08)
[2022-08-02] MEDS: ZOSYN 3.375GM +NS 50ML IVPB SCH (22:16)
[2022-08-02] MEDS: METOPROLOL TARTRATE 50 MG TAB PO SCH (22:16)
[2022-08-03] VITALS: BP 118/56
[2022-08-03 04:00] VITALS: BP 106/63
[2022-08-03 08:00] VITALS: BP 116/73
[2022-08-03] MEDS: METOPROLOL TARTRATE 50 MG TAB PO SCH ×3 (09:00→20:55)
[2022-08-03] MEDS: ZOSYN 3.375GM +NS 50ML IVPB SCH ×2 (09:26→21:09)
[2022-08-03 11:44] VITALS: BP 104/46
[2022-08-03] MEDS: FAMOTIDINE 20MG VIAL IV SCH (13:08)
[2022-08-03] MEDS: HEPARIN 5,000 UNIT VIAL SQ SCH ×2 (13:09→21:10)
[2022-08-03 17:27] VITALS: BP 108/44
[2022-08-03 20:00] VITALS: BP 100/57
[2022-08-03] MEDS: HYDRALAZINE HCL 10 MG TABLET PO SCH (20:54)
[2022-08-03] MEDS ORDERED: METOPROLOL TARTRATE 50 MG TAB PO SCH (21:00)
[2022-08-03] MEDS: DULOXETINE HCL 30 MG CAP PO SCH (21:09)
[2022-08-03] MEDS: SIMVASTATIN 10 MG TABLET PO SCH (21:09)
[2022-08-04] VITALS (21 sets, daily range): BP systolic 87–132; BP diastolic 35–57
[2022-08-04 05:07] LABS: HEMATOCRIT 35.4 % (36-48); MEAN CORPUSCULAR HEMOGLOBIN 32.2 pg (27.0-33.0); MEAN CORPUSCULAR HGB CONC 31.4 g/dL (32.0-36.0); MEAN CORPUSCULAR VOLUME 102.6 fL (79-99); RED BLOOD CELL COUNT(AUTO) 3.45 MIL/uL (4.00-5.50); RED CELL DISTRIBUTION WIDTH 14.8 % (11.0-15.5); WHITE BLOOD COUNT (AUTO) 11.7 K/uL (4.8-10.8)
[2022-08-04 05:35] LABS: MAGNESIUM 2.2 mg/dL (1.80-2.40); POTASSIUM 4.5 mmol/L (3.5-5.1)
[2022-08-04 05:39] LABS: CREATININE 8.9 mg/dL (0.5-1.5)
[2022-08-04] MEDS: HYDRALAZINE HCL 10 MG TABLET PO SCH (09:00)
[2022-08-04] MEDS: METOPROLOL TARTRATE 50 MG TAB PO SCH (09:00)
[2022-08-04] MEDS: PREGABALIN 25 MG CAP PO SCH (09:00)
[2022-08-04] MEDS: ISOSORBIDE MONO 30MG SR TAB PO SCH (09:00)
[2022-08-04] MEDS: DULOXETINE HCL 30 MG CAP PO SCH ×2 (09:00→21:35)
[2022-08-04] MEDS: FAMOTIDINE 20MG VIAL IV SCH (09:10)
[2022-08-04] MEDS: ZOSYN 3.375GM +NS 50ML IVPB SCH (09:10)
[2022-08-04] MEDS: HEPARIN 5,000 UNIT VIAL SQ SCH ×2 (11:00→21:36)
[2022-08-04] MEDS ORDERED: MIDODRINE HCL 5 MG TABLET PO SCH (12:30)
[2022-08-04] MEDS: SIMVASTATIN 10 MG TABLET PO SCH (21:36)
[2022-08-04] MEDS: VANCOMYCIN 1G/250ML KIT 250 ML IV SCH (21:37)
[2022-08-04 21:58] LABS: HEPATITIS B SURFACE ANTIGEN Non-Reactive (Nonreactive)
[2022-08-05] VITALS: BP 115/56
[2022-08-05] MEDS: ZOSYN 3.375GM +NS 50ML IVPB SCH ×3 (01:16→20:41)
[2022-08-05 04:00] VITALS: BP 112/49
[2022-08-05 04:33] LABS: HEMATOCRIT 36.8 % (36-48); MEAN CORPUSCULAR HEMOGLOBIN 32.2 pg (27.0-33.0); MEAN CORPUSCULAR HGB CONC 31.5 g/dL (32.0-36.0); MEAN CORPUSCULAR VOLUME 102.2 fL (79-99); RED BLOOD CELL COUNT(AUTO) 3.6 MIL/uL (4.00-5.50); RED CELL DISTRIBUTION WIDTH 14.9 % (11.0-15.5); WHITE BLOOD COUNT (AUTO) 12.6 K/uL (4.8-10.8)
[2022-08-05 04:49] LABS: CREATININE 6.8 mg/dL (0.5-1.5); MAGNESIUM 1.9 mg/dL (1.80-2.40); POTASSIUM 4.5 mmol/L (3.5-5.1)
[2022-08-05 07:30] VITALS: BP 139/71
[2022-08-05] MEDS: ISOSORBIDE MONO 30MG SR TAB PO SCH (08:44)
[2022-08-05] MEDS: DULOXETINE HCL 30 MG CAP PO SCH ×2 (08:44→20:40)
[2022-08-05] MEDS: PREGABALIN 25 MG CAP PO SCH (08:44)
[2022-08-05] MEDS: METOPROLOL TARTRATE 50 MG TAB PO SCH ×2 (08:45→20:41)
[2022-08-05] MEDS: HYDRALAZINE HCL 10 MG TABLET PO SCH (08:45)
[2022-08-05] MEDS: FAMOTIDINE 20MG VIAL IV SCH (09:08)
[2022-08-05] MEDS: HEPARIN 5,000 UNIT VIAL SQ SCH ×2 (11:00→22:52)
[2022-08-05 11:35] VITALS: BP 128/51
[2022-08-05 15:35] VITALS: BP 140/42
[2022-08-05 20:00] VITALS: BP 155/50
[2022-08-05] MEDS: SIMVASTATIN 10 MG TABLET PO SCH (20:40)
[2022-08-06] VITALS (24 sets, daily range): BP systolic 92–164; BP diastolic 30–91
[2022-08-06 04:44] LABS: HEMATOCRIT 35.4 % (36-48); MEAN CORPUSCULAR HEMOGLOBIN 32.3 pg (27.0-33.0); MEAN CORPUSCULAR HGB CONC 32.2 g/dL (32.0-36.0); MEAN CORPUSCULAR VOLUME 100.3 fL (79-99); RED BLOOD CELL COUNT(AUTO) 3.53 MIL/uL (4.00-5.50); RED CELL DISTRIBUTION WIDTH 15.3 % (11.0-15.5); WHITE BLOOD COUNT (AUTO) 9.9 K/uL (4.8-10.8)
[2022-08-06 04:54] LABS: MAGNESIUM 2.1 mg/dL (1.80-2.40); POTASSIUM 4.3 mmol/L (3.5-5.1)
[2022-08-06] MEDS: HYDRALAZINE HCL 10 MG TABLET PO SCH ×2 (08:19→21:00)
[2022-08-06] MEDS: ISOSORBIDE MONO 30MG SR TAB PO SCH (08:19)
[2022-08-06] MEDS: METOPROLOL TARTRATE 50 MG TAB PO SCH ×2 (08:20→21:00)
[2022-08-06] MEDS ORDERED: CLOPIDOGREL 75MG TAB PO SCH (09:00)
[2022-08-06] MEDS: ZOSYN 3.375GM +NS 50ML IVPB SCH ×2 (09:00→20:12)
[2022-08-06] MEDS: FAMOTIDINE 20MG VIAL IV SCH (09:00)
[2022-08-06] MEDS: ASPIRIN 81 MG EC TAB PO SCH (09:10)
[2022-08-06] MEDS: DULOXETINE HCL 30 MG CAP PO SCH ×2 (09:10→20:06)
[2022-08-06] MEDS: PREGABALIN 25 MG CAP PO SCH (09:11)
[2022-08-06] MEDS: CLOPIDOGREL 75MG TAB PO SCH (09:11)
[2022-08-06] MEDS ORDERED: MIDODRINE HCL 5 MG TABLET PO STA (10:19)
[2022-08-06] MEDS: HEPARIN 5,000 UNIT VIAL SQ SCH ×2 (11:00→20:07)
[2022-08-06] MEDS ORDERED: ACETAMINOPHEN 325 MG TAB PO PRN (12:30)
[2022-08-06] MEDS: SIMVASTATIN 10 MG TABLET PO SCH (20:07)
[2022-08-07] VITALS: BP 121/38
[2022-08-07 04:00] VITALS: BP 124/34
[2022-08-07 07:25] VITALS: BP 149/41
[2022-08-07] MEDS: HYDRALAZINE HCL 10 MG TABLET PO SCH ×2 (08:00→20:27)
[2022-08-07] MEDS: ISOSORBIDE MONO 30MG SR TAB PO SCH (09:00)
[2022-08-07] MEDS: METOPROLOL TARTRATE 50 MG TAB PO SCH ×2 (09:00→20:27)
[2022-08-07] MEDS: FAMOTIDINE 20MG VIAL IV SCH (10:05)
[2022-08-07] MEDS: ZOSYN 3.375GM +NS 50ML IVPB SCH ×2 (10:05→20:27)
[2022-08-07] MEDS: DULOXETINE HCL 30 MG CAP PO SCH ×2 (10:05→20:28)
[2022-08-07] MEDS: PREGABALIN 25 MG CAP PO SCH (10:06)
[2022-08-07] MEDS: CLOPIDOGREL 75MG TAB PO SCH (10:06)
[2022-08-07] MEDS: ASPIRIN 81 MG EC TAB PO SCH (10:06)
[2022-08-07 11:20] VITALS: BP 104/26
[2022-08-07] MEDS: HEPARIN 5,000 UNIT VIAL SQ SCH ×2 (13:25→23:18)
[2022-08-07 15:20] VITALS: BP 141/43
[2022-08-07 16:55] LABS: INR 0.97 (0.85-1.15); PROTHROMBIN TIME 10.6 SEC (9.6-11.6)
[2022-08-07 20:00] VITALS: BP 136/47
[2022-08-07] MEDS: SIMVASTATIN 10 MG TABLET PO SCH (20:28)
[2022-08-08] VITALS: BP 147/42
[2022-08-08 04:00] VITALS: BP 169/73
[2022-08-08 05:00] VITALS: BP 145/50
[2022-08-08 08:00] VITALS: BP 140/72
[2022-08-08] MEDS: CLOPIDOGREL 75MG TAB PO SCH (09:00)
[2022-08-08] MEDS: ISOSORBIDE MONO 30MG SR TAB PO SCH (09:00)
[2022-08-08] MEDS: PREGABALIN 25 MG CAP PO SCH (09:46)
[2022-08-08] MEDS: HYDRALAZINE HCL 10 MG TABLET PO SCH (09:46)
[2022-08-08] MEDS: METOPROLOL TARTRATE 50 MG TAB PO SCH (09:46)
[2022-08-08] MEDS: DULOXETINE HCL 30 MG CAP PO SCH (09:47)
[2022-08-08] MEDS: ASPIRIN 81 MG EC TAB PO SCH (09:47)
[2022-08-08] MEDS: FAMOTIDINE 20MG VIAL IV SCH (09:47)
[2022-08-08] MEDS: ZOSYN 3.375GM +NS 50ML IVPB SCH (09:47)
[2022-08-08] MEDS: HEPARIN 5,000 UNIT VIAL SQ SCH (11:00)
[2022-08-08 11:45] VITALS: BP 125/94
[2022-08-08 16:00] VITALS: BP 121/89
[2022-08-09] MEDS ORDERED: HONEY 1 APPL/ML TUBE TP SCH (09:00)
== END 2022-08-08 19:54 | DRG 638 ==
LOC: EDH 16:06 → OBSVTOIN 18:09 → DIRECT 18:09 → 4AH 21:00
PROVIDERS: ADMIT Internal Medicine; ATTEND Internal Medicine
PROC: 5A1D70Z Performance of Urinary Filtration, Intermittent, Less than 6 Hours Per Day (ICD-10-PCS; principal; 2022-08-04)
PROC: 5A1D70Z Performance of Urinary Filtration, Intermittent, Less than 6 Hours Per Day (ICD-10-PCS; 2022-08-06)
DX: E11.69 Type 2 diabetes mellitus with other specified complication (principal); I12.0 Hypertensive chronic kidney disease with stage 5 chronic kidney disease or end stage renal disease; M86.8X7 Other osteomyelitis, ankle and foot; N18.6 End stage renal disease; Z20.822 Contact with and (suspected) exposure to COVID-19; L97.519 Non-pressure chronic ulcer of other part of right foot with unspecified severity; E11.621 Type 2 diabetes mellitus with foot ulcer; E11.40 Type 2 diabetes mellitus with diabetic neuropathy, unspecified; E11.51 Type 2 diabetes mellitus with diabetic peripheral angiopathy without gangrene; E11.22 Type 2 diabetes mellitus with diabetic chronic kidney disease; D64.9 Anemia, unspecified; D72.829 Elevated white blood cell count, unspecified; E66.09 Other obesity due to excess calories; E78.5 Hyperlipidemia, unspecified; Z79.899 Other long term (current) drug therapy; Z82.3 Family history of stroke; Z99.2 Dependence on renal dialysis; Z82.49 Family history of ischemic heart disease and other diseases of the circulatory system; Z83.3 Family history of diabetes mellitus; Z86.73 Personal history of transient ischemic attack (TIA), and cerebral infarction without residual deficits; Z90.710 Acquired absence of both cervix and uterus; Z68.31 Body mass index [BMI] 31.0-31.9, adult
CPT/HCPCS: 36415; 71045; 73718; 74230; 80048; 80053; 80061; 82948; 83036; 83735; 83880; 84145; 84443; 85025; 85027; 85610; 85730; 86704; 86706; 86850; 86900; 86901; 87040; 87340; 87635; 87804; 90935; 92611; 93005; 93925; G0378; J1644; J2543; J3370; J3490

== ENCOUNTER → 2023-03-06 | Outpatient (CLI) | payer OTHER ==
[~2023-03-06] MED LIST changes: -AMOX-426 PO; +ASCO1CAP5 PO; -PREG25CA18 PO; +PREG25CA19 PO
== END | disposition home or self-care (01) ==
LOC: SHCH 08:41
PROVIDERS: ATTEND Internal Medicine Cardiovascular Disease
DX: I70.203 Unspecified atherosclerosis of native arteries of extremities, bilateral legs (principal)
CPT/HCPCS: 93925

== ENCOUNTER → 2023-04-18 | Outpatient (CLI) | payer OTHER ==
[2023-04-18 16:46] LABS: POTASSIUM 3.9 mmol/L (3.5-5.1)
== END | disposition home or self-care (01) ==
LOC: LAB 03-20 14:03
PROVIDERS: ATTEND Internal Medicine Cardiovascular Disease
DX: N18.6 End stage renal disease (principal); I73.9 Peripheral vascular disease, unspecified
CPT/HCPCS: 36415; 80048

== ENCOUNTER → 2023-04-21 | Outpatient (CLI) | payer OTHER ==
[~2023-04-21] MED LIST changes: +IOHEXOL 350 MG/ML 100ML INFUS..BTL IV ONE; +IOHEXOL-350 50ML VIAL IV ONE
== END | disposition home or self-care (01) ==
LOC: RAH 08:19
PROVIDERS: ATTEND Internal Medicine Cardiovascular Disease
DX: I70.0 Atherosclerosis of aorta (principal); I70.203 Unspecified atherosclerosis of native arteries of extremities, bilateral legs; I70.8 Atherosclerosis of other arteries; I77.4 Celiac artery compression syndrome; N18.6 End stage renal disease; N26.1 Atrophy of kidney (terminal)
CPT/HCPCS: 75635; Q9967 ×2

== ENCOUNTER 2023-06-28 20:17 | Inpatient (IN) | payer OTHER ==
[~2023-06-28] VITALS: Ht 152.4 cm; Wt 76.0 kg
[~2023-06-28 20:17] MED LIST changes: -IOHEXOL 350 MG/ML 100ML INFUS..BTL IV ONE; -IOHEXOL-350 50ML VIAL IV ONE
[2023-06-28 20:40] VITALS: BP 140/49; PULSE 89; RESP 16
[2023-06-28 20:45] VITALS: O2SAT 96
[2023-06-28] MEDS: CLOPIDOGREL 300MG TAB PO ONE (21:10)
[2023-06-28] MEDS ORDERED: IBUP-2077 PO (21:49)
[2023-06-28] MEDS ORDERED: UBID1CAP56 PO (21:49)
[2023-06-28] MEDS ORDERED: MULT-1283 PO (21:49)
[2023-06-28] MEDS ORDERED: LETR2.5T7 PO (21:49)
[2023-06-28] MEDS ORDERED: DOCU-280 PO (21:49)
[2023-06-28] MEDS ORDERED: AEC81 PO (21:49)
[2023-06-28 22:13] LABS: HEMATOCRIT 32.3 % (36-48); MEAN CORPUSCULAR HEMOGLOBIN 32.4 pg (27.0-33.0); MEAN CORPUSCULAR HGB CONC 32.2 g/dL (32.0-36.0); MEAN CORPUSCULAR VOLUME 100.6 fL (79-99); RED BLOOD CELL COUNT(AUTO) 3.21 MIL/uL (4.00-5.50); RED CELL DISTRIBUTION WIDTH 16.6 % (11.0-15.5); WHITE BLOOD COUNT (AUTO) 9.8 K/uL (4.8-10.8)
[2023-06-28 22:27] LABS: ALBUMIN 3.2 g/dL (3.5-5.0); BILIRUBIN,TOTAL 0.6 mg/dL (0.2-1.0); CREATININE 7.1 mg/dL (0.5-1.0); MAGNESIUM 2.3 mg/dL (1.80-2.40); POTASSIUM 3.8 mmol/L (3.5-5.1)
[2023-06-28 23:05] VITALS: BP 143/68; PULSE 87; RESP 17
[2023-06-29] VITALS (20 sets, daily range): BP systolic 102–174; BP diastolic 37–77; PULSE 69–84; RESP 14–20; TEMP 97.9–98.1; O2SAT 96
[2023-06-29] MEDS ORDERED: HYDRALAZINE 20MG/ML VIAL IV PRN (04:30)
[2023-06-29] MEDS ORDERED: DEXTROSE 50%-WATER 50 ML DISP.SYRIN IV PRN (04:30)
[2023-06-29] MEDS ORDERED: GLUCAGON 1MG KIT 1 MG ML IM PRN (04:30)
[2023-06-29] MEDS: CLONIDINE HCL 0.1 MG TABLET PO ONE (04:43)
[2023-06-29] MEDS: INSULIN HUMULIN R 100 UNIT/ML 3ML SQ SCH (06:34)
[2023-06-29] MEDS ORDERED: RENAL DOSE IV PRN (07:30)
[2023-06-29] MEDS: ZOSYN 3.375GM +NS 50ML IV SCH (08:25)
[2023-06-29] MEDS: CLOPIDOGREL 75MG TAB PO SCH (08:25)
[2023-06-29] MEDS: NYSTATIN 15 GM POWDER TP SCH (09:16)
[2023-06-29] MEDS ORDERED: VANCOMYCIN PROTOCOL PER PHARMACY IV SCH (11:00)
[2023-06-29 11:30] LABS: INR 0.95 (0.85-1.15); PROTHROMBIN TIME 11.3 SEC (9.6-11.6)
[2023-06-29 11:32] LABS: PARTIAL THROMBOPLASTIN TIME 30.4 SEC (26.3-35.5)
[2023-06-29] MEDS: VANCOMYCIN 1.5 GM/250 ML BAG 250 ML IV ONE (14:36)
[2023-06-30] VITALS (14 sets, daily range): BP systolic 105–150; BP diastolic 43–58; PULSE 60–84; RESP 16–20; O2SAT 90–95
[2023-06-30] MEDS: IBUPROFEN 800 MG TAB PO PRN (04:59)
[2023-06-30] MEDS: DULOXETINE HCL 30 MG CAP PO SCH (08:34)
[2023-06-30] MEDS: HYDRALAZINE HCL 10 MG TABLET PO SCH (08:34)
[2023-06-30] MEDS: ASPIRIN 81 MG EC TAB PO SCH (08:34)
[2023-06-30] MEDS: Vitamin B Complex/Vit C/Folic Acid PO SCH (08:35)
[2023-06-30] MEDS: Biotin 1,000 MCG PO SCH (08:35)
[2023-06-30] MEDS: ISOSORBIDE MONO 30MG SR TAB PO SCH (08:35)
[2023-06-30] MEDS: Garlic 1,000 MG PO SCH (08:35)
[2023-06-30] MEDS: MULTIVITAMINS PO SCH (08:35)
[2023-06-30] MEDS: HAIR SKIN PO SCH (08:35)
[2023-06-30] MEDS: Letrozole 2.5 MG PO SCH (08:35)
[2023-06-30] MEDS ORDERED: NON-FORMULARY MEDICATION 1 EACH (Vit B Cmplx 3/FA/Vit C/Biotin (Rena-Vite Rx Tablet) 1 EAC PO SCH (09:00)
[2023-06-30 14:01] LABS: HEPATITIS B CORE AB TOTAL Non-Reactive (Nonreactive); HEPATITIS B SURFACE ANTIBODY Positive (Reactive); HEPATITIS B SURFACE ANTIGEN Non-Reactive (Nonreactive)
[2023-06-30] MEDS ORDERED: FENTANYL CITRATE PF 50 MCG/1 ML 2ML VIAL ONE (15:51)
[2023-06-30] MEDS ORDERED: MIDAZOLAM HCL 1 MG/ML 2ML VIAL ONE (15:51)
[2023-06-30] MEDS ORDERED: HEPARIN 10,000 UNIT/10ML (1,000 UNIT/ML) VIAL ONE (15:51)
[2023-06-30] MEDS ORDERED: SODIUM BICARB 50MEQ 50ML VIAL 50 ML ONE (15:51)
[2023-06-30] MEDS ORDERED: IODIXANOL 320 MG/ML 100 ML VIAL ONE (15:51)
[2023-06-30] MEDS ORDERED: LIDOCAINE HCL 1% MDV 50ML VIAL ONE (15:51)
[2023-06-30] MEDS ORDERED: ASPIRIN 81MG CHEW TAB ONE (16:52)
[2023-06-30] MEDS ORDERED: CLOPIDOGREL 300MG TAB ONE (16:52)
[2023-06-30] MEDS ORDERED: LABETALOL 20MG SYG IV ONE (17:23)
[2023-06-30] MEDS: SIMVASTATIN 10 MG TABLET PO SCH (20:04)
[2023-06-30] MEDS ORDERED: NON-FORMULARY MEDICATION 1 EACH (Simvastatin 5 MG) PO SCH (21:00)
[2023-07-01] VITALS (22 sets, daily range): BP systolic 99–163; BP diastolic 20–70; PULSE 65–82; RESP 14–20; TEMP 97.4–97.5; O2SAT 94–100
[2023-07-01 06:08] LABS: BASOPHILS % (AUTO) 0.9 % (0.0-5.0); EOSINOPHILS # (AUTO) 0.28 K/uL (0.00-0.70); EOSINOPHILS % (AUTO) 2.6 % (0.0-8.0); IMMATURE GRANULOCYTE ABSOLUTE 0.08 K/uL (0-1); LYMPHOCYTES # (AUTO) 1.8 K/uL (1.0-4.8); LYMPHOCYTES % (AUTO) 16.9 % (21.0-51.0); MEAN CORPUSCULAR HEMOGLOBIN 31.6 pg (27.0-33.0); MEAN CORPUSCULAR HGB CONC 30.3 g/dL (32.0-36.0); MEAN CORPUSCULAR VOLUME 104.3 fL (79-99); MONOCYTES # (AUTO) 0.9 K/uL (0.1-1.0); NEUTROPHILS # (AUTO) 7.5 K/uL (1.8-7.7); NEUTROPHILS % (AUTO) 70.8 % (40.0-77.0); PLATELET COUNT (AUTO) 183 K/uL (130-400); RED BLOOD CELL COUNT(AUTO) 3.26 MIL/uL (4.00-5.50); RED CELL DISTRIBUTION WIDTH 16.4 % (11.0-15.5); WHITE BLOOD COUNT (AUTO) 10.6 K/uL (4.8-10.8)
[2023-07-01 06:28] LABS: BILIRUBIN,TOTAL 0.5 mg/dL (0.2-1.0); CREATININE 7.3 mg/dL (0.5-1.0); MAGNESIUM 2.3 mg/dL (1.80-2.40); POTASSIUM 4.2 mmol/L (3.5-5.1)
[2023-07-01] MEDS: SEVELAMER HCL 800 MG TABLET PO SCH (14:30)
[2023-07-01] MEDS: VANCOMYCIN 750MG VIAL IVPB SCH (16:49)
[2023-07-02] VITALS (7 sets, daily range): BP systolic 120–158; BP diastolic 46–64; PULSE 69–78; RESP 17–20; O2SAT 100
[2023-07-02 06:08] LABS: BASOPHILS # (AUTO) 0.11 K/uL (0.00-0.20); BASOPHILS % (AUTO) 1.1 % (0.0-5.0); EOSINOPHILS # (AUTO) 0.32 K/uL (0.00-0.70); EOSINOPHILS % (AUTO) 3.3 % (0.0-8.0); HEMATOCRIT 31.6 % (36-48); IMMATURE GRANULOCYTE ABSOLUTE 0.07 K/uL (0-1); LYMPHOCYTES # (AUTO) 1.7 K/uL (1.0-4.8); LYMPHOCYTES % (AUTO) 17.5 % (21.0-51.0); MEAN CORPUSCULAR HEMOGLOBIN 31.4 pg (27.0-33.0); MEAN CORPUSCULAR HGB CONC 30.4 g/dL (32.0-36.0); MEAN CORPUSCULAR VOLUME 103.3 fL (79-99); MONOCYTES % (AUTO) 10.1 % (3.0-13.0); NEUTROPHILS # (AUTO) 6.5 K/uL (1.8-7.7); NEUTROPHILS % (AUTO) 67.3 % (40.0-77.0); PLATELET COUNT (AUTO) 135 K/uL (130-400); RED BLOOD CELL COUNT(AUTO) 3.06 MIL/uL (4.00-5.50); RED CELL DISTRIBUTION WIDTH 16.2 % (11.0-15.5); WHITE BLOOD COUNT (AUTO) 9.6 K/uL (4.8-10.8)
[2023-07-02 06:26] LABS: ALBUMIN 2.6 g/dL (3.5-5.0); BILIRUBIN,TOTAL 0.5 mg/dL (0.2-1.0); CREATININE 5.9 mg/dL (0.5-1.0); MAGNESIUM 1.9 mg/dL (1.80-2.40); POTASSIUM 3.5 mmol/L (3.5-5.1); TOTAL PROTEIN, SERUM 6.1 g/dL (6.0-8.3)
[2023-07-03] VITALS (8 sets, daily range): BP systolic 128–166; BP diastolic 48–72; PULSE 71–88; RESP 17–19; O2SAT 92–100
[2023-07-03 05:49] LABS: EOSINOPHILS # (AUTO) 0.34 K/uL (0.00-0.70); EOSINOPHILS % (AUTO) 3.3 % (0.0-8.0); HEMATOCRIT 31.7 % (36-48); IMMATURE GRANULOCYTE ABSOLUTE 0.05 K/uL (0-1); LYMPHOCYTES # (AUTO) 1.7 K/uL (1.0-4.8); LYMPHOCYTES % (AUTO) 16.3 % (21.0-51.0); MEAN CORPUSCULAR HEMOGLOBIN 31.6 pg (27.0-33.0); MEAN CORPUSCULAR HGB CONC 30.6 g/dL (32.0-36.0); MEAN CORPUSCULAR VOLUME 103.3 fL (79-99); MONOCYTES % (AUTO) 9.1 % (3.0-13.0); NEUTROPHILS # (AUTO) 7.3 K/uL (1.8-7.7); NEUTROPHILS % (AUTO) 69.8 % (40.0-77.0); PLATELET COUNT (AUTO) 163 K/uL (130-400); RED BLOOD CELL COUNT(AUTO) 3.07 MIL/uL (4.00-5.50); RED CELL DISTRIBUTION WIDTH 16.2 % (11.0-15.5); WHITE BLOOD COUNT (AUTO) 10.4 K/uL (4.8-10.8)
[2023-07-03 06:06] LABS: ALBUMIN 2.8 g/dL (3.5-5.0); BILIRUBIN,TOTAL 0.4 mg/dL (0.2-1.0); CREATININE 7.6 mg/dL (0.5-1.0); MAGNESIUM 2.2 mg/dL (1.80-2.40); TOTAL PROTEIN, SERUM 6.6 g/dL (6.0-8.3)
[2023-07-04] VITALS (20 sets, daily range): BP systolic 118–165; BP diastolic 50–75; PULSE 74–87; RESP 15–18; TEMP 97.9–98.2; O2SAT 92
[2023-07-04 07:41] LABS: ALBUMIN 2.8 g/dL (3.5-5.0); BILIRUBIN,TOTAL 0.5 mg/dL (0.2-1.0); MAGNESIUM 2.2 mg/dL (1.80-2.40); POTASSIUM 4.6 mmol/L (3.5-5.1); TOTAL PROTEIN, SERUM 6.6 g/dL (6.0-8.3); VANCOMYCIN LEVEL 22.9 mcg/mL (20.0-30.0)
[2023-07-04 07:51] LABS: CREATININE 9.8 mg/dL (0.5-1.0)
[2023-07-04 08:09] LABS: HEMATOCRIT 32.6 % (36-48); MEAN CORPUSCULAR HEMOGLOBIN 31.7 pg (27.0-33.0); MEAN CORPUSCULAR HGB CONC 30.7 g/dL (32.0-36.0); MEAN CORPUSCULAR VOLUME 103.5 fL (79-99); RED BLOOD CELL COUNT(AUTO) 3.15 MIL/uL (4.00-5.50); RED CELL DISTRIBUTION WIDTH 16.4 % (11.0-15.5); WHITE BLOOD COUNT (AUTO) 12.3 K/uL (4.8-10.8)
[2023-07-04] MEDS ORDERED: Sevelamer Hcl PO (11:05)
[2023-07-04] MEDS ORDERED: CLOP-31 PO (11:05)
[2023-07-04] MEDS ORDERED: NYSTPW TP (11:05)
[2023-07-04] MEDS ORDERED: SEVE800T27 PO (11:06)
== END 2023-07-04 19:20 | disposition home or self-care (01) | DRG 278 ==
LOC: EDH 20:17 → 3CH 20:18
PROVIDERS: ADMIT Internal Medicine; ATTEND Internal Medicine
PROC: 5A1D70Z Performance of Urinary Filtration, Intermittent, Less than 6 Hours Per Day (ICD-10-PCS; 2023-06-29)
PROC: 04FM3ZZ Fragmentation of Right Popliteal Artery, Percutaneous Approach (ICD-10-PCS; principal; 2023-06-30)
PROC: B41F1ZZ Fluoroscopy of Right Lower Extremity Arteries using Low Osmolar Contrast (ICD-10-PCS; 2023-06-30)
PROC: B44FZZZ Ultrasonography of Right Lower Extremity Arteries (ICD-10-PCS; 2023-06-30)
PROC: 5A1D70Z Performance of Urinary Filtration, Intermittent, Less than 6 Hours Per Day (ICD-10-PCS; 2023-07-01)
PROC: 5A1D70Z Performance of Urinary Filtration, Intermittent, Less than 6 Hours Per Day (ICD-10-PCS; 2023-07-04)
DX: E11.51 Type 2 diabetes mellitus with diabetic peripheral angiopathy without gangrene (principal); N18.6 End stage renal disease; L03.115 Cellulitis of right lower limb; E44.1 Mild protein-calorie malnutrition; I12.0 Hypertensive chronic kidney disease with stage 5 chronic kidney disease or end stage renal disease; L97.818 Non-pressure chronic ulcer of other part of right lower leg with other specified severity; D63.1 Anemia in chronic kidney disease; E11.22 Type 2 diabetes mellitus with diabetic chronic kidney disease; E11.40 Type 2 diabetes mellitus with diabetic neuropathy, unspecified; E66.9 Obesity, unspecified; E78.5 Hyperlipidemia, unspecified; I70.0 Atherosclerosis of aorta; E11.621 Type 2 diabetes mellitus with foot ulcer; I99.8 Other disorder of circulatory system; Z79.01 Long term (current) use of anticoagulants; Z79.02 Long term (current) use of antithrombotics/antiplatelets; Z79.82 Long term (current) use of aspirin; Z79.899 Other long term (current) drug therapy; Z83.3 Family history of diabetes mellitus; Z90.710 Acquired absence of both cervix and uterus; Z99.2 Dependence on renal dialysis; Z68.32 Body mass index [BMI] 32.0-32.9, adult
CPT/HCPCS: 36415; 37252; 37253; 71045; 75716; 80053; 80202; 82948; 83735; 84145; 85025; 85027; 85347; 85610; 85730; 86140; 86704; 86706; 87040; 87070; 87076; 87077; 87186; 87340; 90935; 99156; 99157; A6248; C1760; C1893; C1894; C9764; G0378; J1644; J1815; J2250; J2543; J3010; J3490; Q9967; C1725; C1753; C1769; J3370

== ENCOUNTER 2023-07-29 19:28 | Emergency (ER) | payer OTHER ==
[~2023-07-29] VITALS: Ht 152.4 cm; Wt 73.9 kg
[~2023-07-29 19:28] MED LIST changes: -ASCO1CAP5 PO; +CLOP-31 PO; +DOCU-280 PO; +IBUP-2077 PO; +LETR2.5T7 PO; -METO50TA18 PO; +MULT-1283 PO; +NYSTPW TP; -PREG25CA19 PO; +SEVE800T27 PO; +Sevelamer Hcl PO; +UBID1CAP56 PO; -vit D
[2023-07-30 02:22] VITALS: BP 132/65; PULSE 75; RESP 17; O2SAT 98
== END 2023-07-30 02:22 | disposition home or self-care (01) ==
LOC: EDH 19:28
DX: E11.621 Type 2 diabetes mellitus with foot ulcer (principal); M79.661 Pain in right lower leg; I12.0 Hypertensive chronic kidney disease with stage 5 chronic kidney disease or end stage renal disease; E11.22 Type 2 diabetes mellitus with diabetic chronic kidney disease; N18.6 End stage renal disease; Z99.2 Dependence on renal dialysis; Z79.899 Other long term (current) drug therapy
CPT/HCPCS: 93926; 93971

== ENCOUNTER 2024-06-16 14:12 | Emergency (ER) | payer OTHER ==
[~2024-06-16] VITALS: Ht 152.4 cm; Wt 72.1 kg
[~2024-06-16 14:12] MED LIST changes: +ACET-66 PO; -AEC81 PO; +ASPI-1197 PO; -BIOT10004 PO; +CILO50TA2 PO; -DOCU-280 PO; +FOLI0.8T22 PO; -FOLI1TAB85 PO; -GARL1000 PO; +GARL10002 PO; +GING550C5 PO; -IBUP-2077 PO; -MULT-1283 PO; -NYSTPW TP; -SEVE800T27 PO; -Sevelamer Hcl PO; +UBID100C10 PO; -UBID1CAP56 PO; -beet root; +biotin PO; +tramadol PO; -tumeric curcumin
--- NOTE | 2024-06-16 14:24 | NUR ---
PRESSURE TO FISTULA SITE BEING APPLIED NOW
--- NOTE | 2024-06-16 16:13 | ERN ---
ED Note History of Present Illness Stated Complaint: BLEEDING FROM PORT Chief Complaint: Wound Check Time Seen by MD: 14:16 Dictation: 83-year-old female with a history of ESRD on dialysis presents to the ED for evaluation of dialysis fistula problem onset one day ago. Patient reports she has been constantly bleeding from her fistula site. Patient states the bleeding started after dialysis treatment. Allergies: Coded Allergies: No Known Allergies (Verified Allergy, Unknown, 02/14/19) Home Meds Active Scripts Clopidogrel Bisulfate (Plavix) 75 Mg Tablet, 75 MG PO DAILY for 30 Days, #30 TAB 1 Refill Prov:ESTRADA DOTSON MD 07/04/23 Reported Medications Acetaminophen (Tylenol) 500 Mg Tab, 1 TAB PO Q6HPRN PRN for pain or fever for 15 Days, #60 TAB 0 Refills 04/05/24 [biotin] No Conflict Check, 93502 MCG PO DAILY 04/05/24 Cilostazol (Cilostazol) 50 Mg Tablet, 1 TAB PO BID for 30 Days, #60 TAB 0 Refills 04/05/24 Isosorbide Mononitrate (Isosorbide Mononitrate ER) 30 Mg Tab.er.24h, 1 TAB PO DAILY for 30 Days, #30 TAB 0 Refills 04/05/24 Ubidecarenone (Coq-10) 100 Mg Capsule, 100 MG PO DAILY, CAP 04/05/24 Aspirin (Aspirin) 81 Mg Tab.chew, 1 TAB PO DAILY for 30 Days, #30 TAB 0 Refills 04/05/24 [tramadol] No Conflict Check, 50 MG PO 8hrs PRN for PAIN LEVEL 1 TO 5 04/05/24 Folic Acid/Vitamin B Comp W-C (Ruth-Ryan Tablet) 0.8 Mg Tablet, 1 TAB PO DAILY for 30 Days, #30 TAB 0 Refills 04/05/24 Chantel Root (Chantel Root) 550 Mg Capsule, 550 MG PO DAILY, CAP 11/16/23 Garlic (Garlic) 1,000 Mg Capsule, 1000 MG PO DAILY, CAP 11/16/23 Letrozole (Letrozole) 2.5 Mg Tablet, 2.5 MG PO DAILY, TAB 06/28/23 Simvastatin (Simvastatin) 5 Mg Tablet, 5 MG PO HS, TAB 05/19/22 Duloxetine HCl (Duloxetine HCl) 30 Mg Capsule.dr, 30 MG PO BID, CAP 05/19/22 Hydralazine Hcl (APRESOLINE) 10 Mg Tablet, 10 MG PO BID, TAB 05/19/22 Past Medical History Past Medical History: Anemia, Diabetes-Type II, Hypertension Additional Past Medical Hx: DM, STROKE WITH LEFT SIDED DEFICITS Surgical History: Hysterectomy Surgical History Other: DIALYSIS SHUNT TO LEFT ARM Family History: CAD, DM, HTN Social History: Negative, Lives with family, Other Review of System Dictation Constitutional: Negative for fever,chills, and weight loss Eyes: Negative for injury, pain,redness, and discharge ENT: Negative for injury,pain or swelling Cardiovascular: Negative for chest pain, palpitations, and edema Respiratory: Negative for shortness of breath, cough, and wheezing, Abdomen/GI: Negative for abdominal pain, nausea, vomiting, diarrhea, and constipation Back: Negative for injury and pain : Negative for injury, bleeding and discharge MS/Extremity: Negative for injury and deformity Skin: Negative for rash, and discoloration Neuro: Negative for headache, weakness, numbness, tingling, and seizure Psych: Negative for suicide ideation, homicidal ideation, and hallucinations Initial Vital Sign VS Vital Signs Date Time Temp Pulse Resp B/P (MAP) Pulse Ox O2 Delivery O2 Flow Rate FiO2 06/16/24 14:18 99.0 80 18 161/62 99 Room Air 06/16/24 19:52 0 21 Physical Exam Dictation General: awake, alert, NAD Head/Face: Normocephalic, atraumatic Eyes: PERRL, EOMI, vision at baseline ENT: oral cavity clear, TMs clear, no signs of infection Neck: Trachea midline, supple, no nuchal rigidity Cardiovascular: RRR, normal S1/S2, No MRGs, no JVD Respiratory: CTAB, no respiratory distress, No rales or wheezes Abdomen: Soft, non-tender, non-distended, normal bowel sounds, no guarding or rebound. Skin: Warm, dry, normal turgor, no rash MS/Extremity: Pulses equal, no cyanosis, neurovascular intact, right BKA, LAVA fistula mild bleeding Neuro: COAx4, GCS 15, strength 5/5, CN 2-12 intact, normal cerebellar exam, normal gait, Psych: Normal behavior, mood, and affect normal Results (Laboratory/Radiology) Laboratory/Radiology Laboratory Tests Test 06/16/24 16:49 White Blood Count 9.5 K/uL (4.8-10.8) Red Blood Count 3.63 MIL/uL (4.00-5.50) L Hemoglobin 10.9 g/dL (12.0-16.0) L Hematocrit 37.1 % (36-48) Mean Corpuscular Volume 102.2 fL (79-99) H Mean Corpuscular Hemoglobin 30.0 pg (27.0-33.0) Mean Corpuscular Hemoglobin Concent 29.4 g/dL (32.0-36.0) L Red Cell Distribution Width 17.2 % (11.0-15.5) H Platelet Count 154 K/uL (130-400) Mean Platelet Volume 8.9 fL (7.5-10.5) Immature Granulocyte % (Auto) 0.5 % (0-1) Neutrophils (%) (Auto) 65.5 % (40.0-77.0) Lymphocytes (%) (Auto) 22.8 % (21.0-51.0) Monocytes (%) (Auto) 7.0 % (3.0-13.0) Eosinophils (%) (Auto) 2.7 % (0.0-8.0) Basophils (%) (Auto) 1.5 % (0.0-5.0) Neutrophils # (Auto) 6.2 K/uL (1.8-7.7) Lymphocytes # (Auto) 2.2 K/uL (1.0-4.8) Monocytes # (Auto) 0.7 K/uL (0.1-1.0) Eosinophils # (Auto) 0.26 K/uL (0.00-0.70) Basophils # (Auto) 0.14 K/uL (0.00-0.20) Absolute Immature Granulocyte (auto 0.05 K/uL (0-1) Nucleated Red Blood Cells 0.0 % (0.0-0.19) Red Blood Cell Morphology See comments Sodium Level 136 mmol/L (136-145) Potassium Level 5.0 mmol/L (3.5-5.1) Chloride Level 100 mmol/L (101-111) L Carbon Dioxide Level 33 mmol/L (21-32) H Blood Urea Nitrogen 20 mg/dL (7-18) H Creatinine 4.7 mg/dL (0.5-1.0) H Glomerular Filtration Rate Calc 9 mL/min (>90) Random Glucose 104 mg/dL (70-105) Total Calcium 8.6 mg/dL (8.5-10.1) Labs Reviewed?: Yes ED Course ED Course Orders Procedure Category Date Status Time Cbc With Differential LAB 06/16/24 Complete 15:53 Basic Metabolic Panel LAB 06/16/24 Complete 15:53 Vital Signs Date Time Temp Pulse Resp B/P (MAP) Pulse Ox O2 Delivery O2 Flow Rate FiO2 06/16/24 22:26 98.1 78 18 121/69 96 Room Air* 0 21 06/16/24 19:52 98.8 74 20 124/67 97 Room Air* 0 21 06/16/24 14:18 99.0 80 18 161/62 99 Room Air Medical Decision Making MDM MDM: Differential diagnosis: AV fistula problem Rationale: Tests considered and ordered secondary to shared decision making include: Risk of complication and/or morbidity or mortality of patient management: None Medications-Per medication reconciliation Need for hospitalization: Patient does not meet criteria for hospitalization. Need for emergency major/minor surgery: No There are no social concerns with this patient. I independently interpreted the test that were performed, results were reviewed by me and considered findings on radiology if ordered. Medical management and examination interpretation discussions were had by me with other qualified healthcare professionals as indicated for the patient's care. 1899- patient care is being transferred to Dr. Marshall DX & DISP Disposition: Discharge Departure Impression: Primary Impression: End-stage renal disease on hemodialysis Additional Impression: AV graft malfunction Condition: Stable Referrals: HOUSTON WALLACE (PCP) DANIEL MARAVILLA MD Jun 16, 2024 16:13 VALERIE MARSHALL MD Jun 16, 2024 23:15
[2024-06-16 16:54] LABS: BASOPHILS # (AUTO) 0.14 K/uL (0.00-0.20); BASOPHILS % (AUTO) 1.5 % (0.0-5.0); EOSINOPHILS # (AUTO) 0.26 K/uL (0.00-0.70); EOSINOPHILS % (AUTO) 2.7 % (0.0-8.0); HEMATOCRIT 37.1 % (36-48); IMMATURE GRANULOCYTE ABSOLUTE 0.05 K/uL (0-1); LYMPHOCYTES # (AUTO) 2.2 K/uL (1.0-4.8); LYMPHOCYTES % (AUTO) 22.8 % (21.0-51.0); MEAN CORPUSCULAR HGB CONC 29.4 g/dL (32.0-36.0); MEAN CORPUSCULAR VOLUME 102.2 fL (79-99); MONOCYTES # (AUTO) 0.7 K/uL (0.1-1.0); NEUTROPHILS # (AUTO) 6.2 K/uL (1.8-7.7); NEUTROPHILS % (AUTO) 65.5 % (40.0-77.0); PLATELET COUNT (AUTO) 154 K/uL (130-400); RED BLOOD CELL COUNT(AUTO) 3.63 MIL/uL (4.00-5.50); RED CELL DISTRIBUTION WIDTH 17.2 % (11.0-15.5); WHITE BLOOD COUNT (AUTO) 9.5 K/uL (4.8-10.8)
[2024-06-16 17:30] LABS: CREATININE 4.7 mg/dL (0.5-1.0)
[2024-06-16 23:14] VITALS: BP 127/60; PULSE 71; RESP 20; TEMP 98.1; O2SAT 96
== END 2024-06-16 23:30 | disposition home or self-care (01) ==
LOC: EDH 14:12
DX: T82.510A Breakdown (mechanical) of surgically created arteriovenous fistula, initial encounter (principal); E11.22 Type 2 diabetes mellitus with diabetic chronic kidney disease; I12.0 Hypertensive chronic kidney disease with stage 5 chronic kidney disease or end stage renal disease; N18.6 End stage renal disease; Z79.02 Long term (current) use of antithrombotics/antiplatelets; Z79.811 Long term (current) use of aromatase inhibitors; Z79.82 Long term (current) use of aspirin; Z79.899 Other long term (current) drug therapy; Z86.73 Personal history of transient ischemic attack (TIA), and cerebral infarction without residual deficits; Z90.710 Acquired absence of both cervix and uterus; Z99.2 Dependence on renal dialysis; Y82.8 Other medical devices associated with adverse incidents; Y92.89 Other specified places as the place of occurrence of the external cause
CPT/HCPCS: 36415; 80048; 85025; 99283

== ENCOUNTER 2024-07-27 15:18 | Emergency (ER) | payer OTHER ==
[~2024-07-27] VITALS: Ht 152.4 cm; Wt 72.1 kg
[2024-07-27 16:16] LABS: BASOPHILS # (AUTO) 0.11 K/uL (0.00-0.20); BASOPHILS % (AUTO) 1.2 % (0.0-5.0); EOSINOPHILS # (AUTO) 0.15 K/uL (0.00-0.70); EOSINOPHILS % (AUTO) 1.6 % (0.0-8.0); HEMATOCRIT 42.4 % (36-48); IMMATURE GRANULOCYTE ABSOLUTE 0.03 K/uL (0-1); LYMPHOCYTES # (AUTO) 1.6 K/uL (1.0-4.8); LYMPHOCYTES % (AUTO) 17.6 % (21.0-51.0); MEAN CORPUSCULAR HEMOGLOBIN 30.5 pg (27.0-33.0); MEAN CORPUSCULAR HGB CONC 30.7 g/dL (32.0-36.0); MEAN CORPUSCULAR VOLUME 99.5 fL (79-99); MONOCYTES # (AUTO) 0.8 K/uL (0.1-1.0); MONOCYTES % (AUTO) 8.6 % (3.0-13.0); NEUTROPHILS # (AUTO) 6.5 K/uL (1.8-7.7); NEUTROPHILS % (AUTO) 70.7 % (40.0-77.0); PLATELET COUNT (AUTO) 137 K/uL (130-400); RED BLOOD CELL COUNT(AUTO) 4.26 MIL/uL (4.00-5.50); WHITE BLOOD COUNT (AUTO) 9.2 K/uL (4.8-10.8)
[2024-07-27 17:18] LABS: ERYTHROCYTE SEDIMENTATION RATE 5 MM/HR (0-30)
[2024-07-27] MEDS ORDERED: MUPI22OI2 TP (19:57)
[2024-07-27] MEDS ORDERED: CEPH500B PO (19:57)
--- NOTE | 2024-07-27 20:00 | ERN ---
General Chief Complaint: Lower Extremity Pain/Injury Stated Complaint: RT BKA INFECTION/ PAIN Time Seen by MD: 15:26 Time Seen by Midlevel: 15:26 Source: patient History of Present Illness Initial Comments The patient is an 83-year-old female with a past medical history of end-stage renal disease on hemodialysis presenting to the emergency department for e valuation of a possible infection to her right BKA. Patient reports having a right qgall-eai-oihh amputation earlier this year. She noticed some yellow crusting to the incision site and decided to report to the ER for further evaluation. She denies any fever, chills, or any other symptoms at this time. She was on a Monday dialysis schedule and reports getting her dialysis treatment earlier today. Allergies: Coded Allergies: No Known Allergies (Verified Allergy, Unknown, 02/14/19) Home Meds Active Scripts Clopidogrel Bisulfate (Plavix) 75 Mg Tablet, 75 MG PO DAILY for 30 Days, #30 TAB 1 Refill Prov:ESTRADA DOTSON MD 07/04/23 Reported Medications Acetaminophen (Tylenol) 500 Mg Tab, 1 TAB PO Q6HPRN PRN for pain or fever for 15 Days, #60 TAB 0 Refills 04/05/24 [biotin] No Conflict Check, [address] MCG PO DAILY 04/05/24 Cilostazol (Cilostazol) 50 Mg Tablet, 1 TAB PO BID for 30 Days, #60 TAB 0 Refills 04/05/24 Isosorbide Mononitrate (Isosorbide Mononitrate ER) 30 Mg Tab.er.24h, 1 TAB PO DAILY for 30 Days, #30 TAB 0 Refills 04/05/24 Ubidecarenone (Coq-10) 100 Mg Capsule, 100 MG PO DAILY, CAP 04/05/24 Aspirin (Aspirin) 81 Mg Tab.chew, 1 TAB PO DAILY for 30 Days, #30 TAB 0 Refills 04/05/24 [tramadol] No Conflict Check, 50 MG PO 8hrs PRN for PAIN LEVEL 1 TO 5 04/05/24 Folic Acid/Vitamin B Comp W-C (Ruth-Ryan Tablet) 0.8 Mg Tablet, 1 TAB PO DAILY for 30 Days, #30 TAB 0 Refills 04/05/24 Chantel Root (Chantel Root) 550 Mg Capsule, 550 MG PO DAILY, CAP 11/16/23 Garlic (Garlic) 1,000 Mg Capsule, 1000 MG PO DAILY, CAP 11/16/23 Letrozole (Letrozole) 2.5 Mg Tablet, 2.5 MG PO DAILY, TAB 06/28/23 Simvastatin (Simvastatin) 5 Mg Tablet, 5 MG PO HS, TAB 05/19/22 Duloxetine HCl (Duloxetine HCl) 30 Mg Capsule.dr, 30 MG PO BID, CAP 05/19/22 Hydralazine Hcl (APRESOLINE) 10 Mg Tablet, 10 MG PO BID, TAB 05/19/22 Past Medical History Past Medical History: Cancer, CVA, Diabetes-Type II, Hypertension Medical History Other: DM, STROKE WITH LEFT SIDED DEFICITS Past Surgical History: Hysterectomy Surgical History Other: LEFT BKA, CYSTS Family History Family History: CAD, DM, HTN Social History Social History: Negative, Lives with family, Other ROS Dictation CONSTITUTIONAL: Negative except for HPI HEAD/FACE: Negative except for HPI EENT: Negative except for HPI RESPIRATORY: Negative except for HPI GASTROINTESTINAL/ABDOMINAL: Negative except for HPI GENITOURINARY: Negative except for HPI MUSCULOSKELETAL: Negative except for HPI INTEGUMENTARY: Negative except for HPI NEUROLOGICAL/PSYCH: Negative except for HPI HEMATOLOGIC/LYMPHATIC: Negative except for HPI All Systems Negative, Except as noted above. 13 point review of systems assessed and all negative except for above. Physical Exam Physical Exam Dictation PHYSICAL EXAM: GENERAL: alert,, awake oriented x 3 HEENT: EOMI, Sclera non icteric, moist mucosa NECK: Supple, no JVD, trachea midline LUNGS: Clear breath sounds bilaterally. No wheezes HEART: Regular rate and rhythm. Normal S1 and S2, without murmurs ABD: Abdomen soft, nontender. Bowel sounds present EXT: There is a right gxpie-[id number]-bmkf amputation. Postsurgical incision reveals mild amount of yellow crusting. There is no overlying erythema or induration. No drainable abscess at this time. The area is not warm to touch. No fluctuance NEURO: Alert and oriented to person, follows commands Results Laboratory and Microbiology Lab and Micro Result Laboratory Tests Test 07/27/24 16:03 White Blood Count 9.2 K/uL (4.8-10.8) Red Blood Count 4.26 MIL/uL (4.00-5.50) Hemoglobin 13.0 g/dL (12.0-16.0) Hematocrit 42.4 % (36-48) Mean Corpuscular Volume 99.5 fL (79-99) H Mean Corpuscular Hemoglobin 30.5 pg (27.0-33.0) Mean Corpuscular Hemoglobin Concent 30.7 g/dL (32.0-36.0) L Red Cell Distribution Width 17.0 % (11.0-15.5) H Platelet Count 137 K/uL (130-400) Mean Platelet Volume 10.3 fL (7.5-10.5) Immature Granulocyte % (Auto) 0.3 % (0-1) Neutrophils (%) (Auto) 70.7 % (40.0-77.0) Lymphocytes (%) (Auto) 17.6 % (21.0-51.0) L Monocytes (%) (Auto) 8.6 % (3.0-13.0) Eosinophils (%) (Auto) 1.6 % (0.0-8.0) Basophils (%) (Auto) 1.2 % (0.0-5.0) Neutrophils # (Auto) 6.5 K/uL (1.8-7.7) Lymphocytes # (Auto) 1.6 K/uL (1.0-4.8) Monocytes # (Auto) 0.8 K/uL (0.1-1.0) Eosinophils # (Auto) 0.15 K/uL (0.00-0.70) Basophils # (Auto) 0.11 K/uL (0.00-0.20) Absolute Immature Granulocyte (auto 0.03 K/uL (0-1) Nucleated Red Blood Cells 0.0 % (0.0-0.19) Red Blood Cell Morphology See comments Erythrocyte Sedimentation Rate 5 MM/HR (0-30) Lactic Acid Level 1.8 mmol/L (0.8-2.5) Labs Reviewed?: Yes MDM MDM: The patient is an 83-year-old female with a past medical history of end- stage renal disease on hemodialysis presenting to the emergency department for evaluation of a possible infection to her right BKA. Patient reports having a right lvsfu-vjn-mzay amputation earlier this year. She noticed some yellow cru sting to the incision site and decided to report to the ER for further evaluation. She denies any fever, chills, or any other symptoms at this time. She was on a Monday dialysis schedule and reports getting her dialysis treatment earlier today. On physical examination the patient was in no acute respiratory distress. Initial vital signs are stable. On exam the patient has a right vntcf-zgw-avfk amputation. There is superficial yellow crusting overlying the right BKA incision. There is no surrounding erythema, induration, or fluctuance noted. No drainable abscess. Patient was afebrile. I have PD CBC which shows a normal white blood cell count. Her lactic acid is normal. His can be treated outpatient with oral antibiotics and topical ointment. Red flag symptoms discussed. Strict return precautions were given Differential diagnosis: Cellulitis, abscess, staph infection superficial There are no social concerns with this patient. Prescription drug management Prescriptions will include: Keflex and mupirocin ointment Medical management and examination interpretation discussions were had by me with other qualified healthcare professionals as indicated for the patient's care. ED Course Orders Procedure Category Date Status Time Cbc With Differential LAB 07/27/24 Complete 15:56 Lactic Acid LAB 07/27/24 Complete 15:56 Erythrocyte LAB 07/27/24 Complete Sedimentation Rate 15:56 Basic Metabolic Panel LAB 07/27/24 Logged 17:59 Vital Signs Date Time Temp Pulse Resp B/P (MAP) Pulse Ox O2 Delivery O2 Flow Rate FiO2 07/27/24 16:50 97.9 77 18 153/48 96 Room Air* 0 21 07/27/24 15:25 99.7 79 18 147/53 98 0 DX & DISP Disposition: Discharge Departure Impression: Primary Impression: Superficial bacterial skin infection Condition: Stable Scripts Mupirocin (Mupirocin Ointment) 2 % Oint 1 APPL TP TID for 5 Days, #15 GM 0 Refills apply to affected area(s) Prov: HOUSTON THORNE 07/27/24 Cephalexin Monohydrate (Keflex) 500 Mg Cap 500 MG PO BID for 7 Days, #14 CAP Prov: HOUSTON THORNE 07/27/24 Additional Instructions: Your blood work today is stable. Your white blood cell count is normal. Your physical examination reveals what appears to be a superficial skin infection. I have given you a prescription for oral antibiotics. Please take prescription medications as prescribed. I have also given you a prescription for topical ointment which should help 5D superficial infection. Follow up with your doctor in 24-48 hours for repeat evaluation. If you develop any worsening redness, swelling, or any fevers please report to the emergency department for further evaluation. Referrals: HOUSTON WALLACE (PCP) I have reviewed the case, and I agree with, Diagnosis and Plan I performed the substantive portion of the visit. I have reviewed and pers onally made and approve the management plan that is documented in the note by myself or the SHANTELLE. I acknowledge for responsibility for the patient's management plan. HOUSTON THORNE Jul 27, 2024 20:00
[2024-07-27 20:12] LABS: CREATININE 3.7 mg/dL (0.5-1.0); POTASSIUM 4.2 mmol/L (3.5-5.1)
[2024-07-27 21:42] VITALS: BP 152/68; PULSE 80; RESP 18; TEMP 98; O2SAT 100
== END 2024-07-27 21:43 | disposition home or self-care (01) ==
LOC: EDH 15:18
DX: L08.9 Local infection of the skin and subcutaneous tissue, unspecified (principal); B96.89 Other specified bacterial agents as the cause of diseases classified elsewhere; I12.0 Hypertensive chronic kidney disease with stage 5 chronic kidney disease or end stage renal disease; E11.22 Type 2 diabetes mellitus with diabetic chronic kidney disease; N18.6 End stage renal disease; Z79.02 Long term (current) use of antithrombotics/antiplatelets; Z79.811 Long term (current) use of aromatase inhibitors; Z79.82 Long term (current) use of aspirin; Z79.899 Other long term (current) drug therapy; Z86.73 Personal history of transient ischemic attack (TIA), and cerebral infarction without residual deficits; Z89.511 Acquired absence of right leg below knee; Z89.512 Acquired absence of left leg below knee; Z90.710 Acquired absence of both cervix and uterus; Z99.2 Dependence on renal dialysis
CPT/HCPCS: 36415; 80048; 83605; 85025; 85651; 99284